=== PATIENT | female | born 1950 | race Caucasian/White ===

== ENCOUNTER → 2016-09-26 | Outpatient (CLI) | payer OTHER ==
--- NOTE | 2016-10-01 13:04 | MM ---
Reason for exam: follow-up at short interval from prior study. Last mammogram was performed 6 months ago. History: Patient is postmenopausal. Family history of breast cancer in sister at age 63. Took estrogen for 1 year beginning at age 27. Physical Findings: Nurse did not find any significant physical abnormalities on exam. MG 3D Diag Mammo W/Cad LT CC and MLO view(s) were taken of the left breast. Prior study comparison: April 03, 2016, left breast MG work up mamm w CAD LT. March 11, 2016, bilateral MG screening mammo w CAD. These results were verbally communicated with the patient and result sheet given to the patient on 09/26/16. ASSESSMENT: Benign, BI-RAD 2 RECOMMENDATION: Routine screening mammogram of both breasts in 6 months. Back on schedule.
--- NOTE | 2016-10-01 13:05 | USB ---
Reason for exam: follow-up at short interval from prior study. History: Patient is postmenopausal. Family history of breast cancer in sister at age 63. Took estrogen for 1 year beginning at age 27. US Breast LT Left breast ultrasound includes all four quadrants, the retroareolar region and axilla. Finding demonstrate a 0.5 x 0.5 x 0.4cm oval, cystic lesion at 2 o'clock and a 0.3 x 0.2 x 0.2cm oval cystic lesion at 10 o'clock. These results were verbally communicated with the patient and result sheet given to the patient on 09/26/16. ASSESSMENT: Benign, BI-RAD 2 RECOMMENDATION: Routine screening mammogram of both breasts in 6 months. Back on schedule.
== END | disposition home or self-care (01) ==
LOC: RADMAMWWP 13:40
PROVIDERS: ATTEND Family Medicine
DX: R92.8 Other abnormal and inconclusive findings on diagnostic imaging of breast (principal)
CPT/HCPCS: 76641; G0206; G0279

== ENCOUNTER → 2016-09-26 | Outpatient (CLI) | payer OTHER ==
[2016-09-26 16:39] LABS: CH 29.2; CHCM 33.8; HCT 45.3 % (34.0-46.0); HDW 3.09; MCH 28.7 pg (25.0-35.0); MCHC 33.2 g/dL (31.0-37.0); MCV 86.7 fL (80.0-100.0); Mean Platelet Volume 7.2; RBC 5.23 m/uL (3.80-5.40); RDW 13.9 % (11.5-15.5); WBC 7.3 k/uL (3.8-10.6)
[2016-09-26 16:44] LABS: Appearance,Urine Clear (Clear); Bacteria,Urine Rare /hpf; Bilirubin,Urine Negative (Negative); Glucose,Urine (UA) Negative (Negative); Ketones,Urine Negative (Negative); Leukocyte Esterase,Urine Negative (Negative); Mucus,Urine Rare /hpf; Nitrite,Urine Negative (Negative); PH, Urine 5.5 (5.0-8.0); Particle Count 2826; Protein,Urine Negative (Negative); RBC,Urine 3 /hpf (0-5); Specific Gravity,Urine 1.014 (1.001-1.035); Squamous Epithelial Cell,Urine 2 /hpf (0-4); UA Billing (MACRO vs. MICRO) MICRO; Urobilinogen,Urine <2.0 mg/dL (<2.0); WBC,Urine 3 /hpf (0-5)
[2016-09-26 16:47] LABS: INR 1.1 (<1.1); Prothrombin Time 10.7 sec (9.0-12.0)
[2016-09-26 16:56] LABS: ALT 33 U/L (9-52); AST 25 U/L (14-36); Alkaline Phosphatase 116 U/L (38-126); Anion Gap 9 mmol/L; Blood Urea Nitrogen 17 mg/dL (7-17); Calcium 9.7 mg/dL (8.4-10.2); Carbon Dioxide 26 mmol/L (22-30); Chloride 103 mmol/L (98-107); Glucose 87 mg/dL (74-99); Non-African American GFR(MDRD) >60 (>60 ml/min/1.73 sqM); Potassium 3.9 mmol/L (3.5-5.1); Sodium 138 mmol/L (137-145); Total Bilirubin 0.6 mg/dL (0.2-1.3); Total Protein 6.6 g/dL (6.3-8.2)
== END ==
LOC: LABPAT 15:29
PROVIDERS: ATTEND Family Medicine
DX: Z01.818 Encounter for other preprocedural examination (principal); Z01.810 Encounter for preprocedural cardiovascular examination; Z01.812 Encounter for preprocedural laboratory examination; M17.11 Unilateral primary osteoarthritis, right knee
CPT/HCPCS: 80053; 81001; 85027; 85610; 85730; 87070

== ENCOUNTER 2016-10-07 10:13 | Inpatient (IN) | payer OTHER ==
[~2016-10-07 10:13] MED LIST: ACETAMINOPHEN TAB 500 MG TAB PO ONE; DEXAMETHASONE SOD PHOSPHATE 10 MG/ML 1 ML VIAL IV ONE; LIDOCAINE 1% 20 ML VIAL (10MG/ML) FOR IV START INTRADERMA PRN; MELOXICAM 7.5 MG TAB PO ONE; ONDANSETRON 4 MG/2 ML VIAL IVP ONE; SCOPOLAMINE 1.5MG/72HR PATCH TRANSDERM ONE; TRANEXAMIC ACID 1,000 MG in SODIUM CHLORIDE 0.9% 100 ML IVPB ONE; ceFAZolin 3 GM in SODIUM CHLORIDE 0.9% 100 ML IVPB ONE
[2016-10-07] MEDS: LACTATED RINGERS 1,000 ML IV SCH (13:04)
[2016-10-07] MEDS ORDERED: TRANEXAMIC ACID 1,000 MG/10 ML VIAL ONE (13:57)
[2016-10-07] MEDS ORDERED: LIDOCAINE 1% INJ 10MG/ML (20 ML MDV) ONE (13:57)
[2016-10-07] MEDS ORDERED: MIDAZOLAM 2 MG/2 ML VIAL ONE (13:57)
[2016-10-07] MEDS ORDERED: ROCURONIUM BROMIDE 10 MG/ML 10 ML VIAL IV ONE (13:57)
[2016-10-07] MEDS ORDERED: fentaNYL (PF) 50 MCG/ML 2 ML AMP ONE (13:57)
[2016-10-07] MEDS ORDERED: SUCCINYLCHOLINE CHLORIDE 100 MG/5 ML SYR IV ONE (13:57)
[2016-10-07] MEDS ORDERED: MORPHINE SULFATE 10 MG/ML SYRINGE ONE (13:57)
[2016-10-07] MEDS ORDERED: PROPOFOL 10 MG/ML 20 ML VIAL IV ONE (13:57)
[2016-10-07] MEDS ORDERED: SODIUM CHLORIDE 0.9% 100 ML BAG ONE (13:57)
[2016-10-07] MEDS ORDERED: SODIUM CHLORIDE 0.9% 50 ML with CLINDAMYCIN 600 MG IV ONE ×2 (14:10)
[2016-10-07] MEDS ORDERED: CLINDAMYCIN 1,800 MG in SODIUM CHLORIDE 0.9% IRRIGATIO 3,000 ML IRRIGATION ONE (14:27)
[2016-10-07] MEDS: ROPIVACAINE 246.25 MG, EPINEPHrine 0.5 MG, KETOROLAC 30 MG, cloNIDine HCL/PF 80 MCG, WA... MISCELLANE ONE ×10 (14:27→14:59)
--- NOTE | 2016-10-07 15:42 | P.OP ---
Date of Procedure: 10/07/16 Preoperative Diagnosis: Severe osteoarthritis right knee Postoperative Diagnosis: Severe osteoarthritis right knee Procedure(s) Performed: Right total knee arthroplasty Implants: Chan and Nephew Oxinium femoral component size 5, right Chan & Nephew Lucina II right nonporous tibial baseplate size 3 Chan & Nephew size 9 mm Legion XLPE dished articular insert, size 3-4 Chan & Nephew Lucina II resurfacing patellar component, 32 mm All components were cemented using Marilia bone cement.. The articulation is ceramic on polyethylene. Anesthesia: GETA Surgeon: Luis Felipe Manzano Spring Encaser #1: Elidia Zelaya Spring Encaser #2: Essence Smith Estimated Blood Loss (ml): 50 Pathology: other (Bone and cartilage) Condition: stable Disposition: PACU Indications for Procedure: After failure of conservative treatment we discussed the surgical and nonsurgical treatment options at length. Patient wishes to proceed with a total knee arthroplasty. Complications specific to this procedure were discussed at length, including but not limited to infection, bleeding, stiffness , and nerve injury. Patient is aware of all these complications and informed consent was obtained Operative Findings: The operative findings are consistent with severe osteoarthritis of the right knee Description of Procedure: Patient was seen in the preoperative area consent was reviewed and operative site was marked with a skin marker. An adductor canal pain catheter was placed by anesthesia in the preoperative area. Patient was then brought to the operating room and given preoperative antibiotics intravenously. A spinal anesthetic was administered by the anesthesia department. A tourniquet was placed on the upper thigh and the lower extremity was prepped and draped in usual sterile fashion. A gram of transexamic acid was given. A universal timeout was then performed which confirmed the patient's name, surgical site, ALLERGIES, and consent. The lower extremity was then exsanguinated and tourniquet was inflated to 350 mmHg. A standard and anterior midline approach to the knee was performed. The skin and subcutaneous tissue was dissected down to the patellar tendon. A medial parapatellar arthrotomy was then performed. The knee was then extended, the patellar was everted, and the knee was again flexed. Anterior horns of both menisci were excised, and a release was performed to the posterior medial aspect of the knee. On gross visual inspection, there was complete loss of articular cartilage in the medial and patellofemoral joint spaces. There was also significant cartilage damage in the lateral compartment. There were multiple periarticular osteophytes which were then removed with a Ronguer. The femoral canal was then opened with the appropriate drill, and the intramedullary femoral cutting guide was then placed and set for 4 of valgus. The distal femoral cutting block was then pinned in place, and the distal femur was then cut. The cutting block was then removed and the cut was checked for flatness. Next, the sizing guide was then placed and set for 3 external rotation based off of the epicondylar axis and Whitesides line. After the femur was sized, the appropriate 4-in-1 cutting block was then pinned in place. The anterior condyles were cut without notching. The posterior and chamfer cuts were performed while protecting the collateral ligaments. The cutting block was then removed, and the femoral canal was plugged with autologous bone. Attention was then directed to the tibia. The remaining ACL was removed with a Ronguer, and the tibia was then gently subluxed forward with a large bent knee retractor. Any remaining menisci was excised. The posterior lateral corner was cauterized in order to cauterize the lateral geniculate artery. The extra medullary tibial cutting guide was then placed, set for the appropriate rotation , slope, and depth of resection. The proximal tibia cutting guide was then pinned in place. Proximal tibia was then cut and sized. Next trials were then placed with the appropriate-sized insert. The knee was able to fully extend and flex to 130 and was stable throughout all range of motion. The knee was then extended, patella everted. Patella was then measured, and then using an osteotomy guide, the patella was cut at the appropriate level. The patella was then measured and drilled and the patella trial was then placed. The knee was then taken through range of motion with the patella trial and the patella tracked normally. The knee was then extended patella trial was then removed and the patella was everted. Knee was then flexed and lug holes were drilled through the femoral trial and the femoral trial was then removed. The tibial was then exposed, and the tibial broach guide was then pinned in place after it was set for the appropriate rotation to allow for the most coverage without overhang. The tibia was then reamed and broached. The cut surfaces of bone were then irrigated with pulsatile lavage. The posterior structures were injected with the ropivacaine solution. The knee was also irrigated with Irrisept solution. The components were then opened, the cement was mixed, and the components were then cemented in place. The cement was allowed to harden with the knee in full extension. While the cement was hardening, the remaining soft tissues were then injected with a ropivacaine solution, which consisted of 246.25 mg of ropivacaine, 0.5 mg of epinephrine, 30 mg of Toradol, 80 g of clonidine, and 48.45 mL of sterile water, for a total of 100 mL of fluid injected. After the cemented hardened. The tourniquet was released, and hemostasis was obtained. A second gram of transexamic acid was given. The knee was again irrigated. The knee was again taken through range of motion and found to be stable throughout all range of motion of 0-130 , and the patella tracked normally. The fascia was then closed with #2 strata fix suture. The subcutaneous tissue was closed with 3-0 Vicryl and 3-0 strata fix. Dermabond tape was used for the skin and placed with the knee in flexion. The patient was placed in a sterile dressing. Patient was then transferred to recovery room in stable condition. The customer assistant KAJAL Moeller was required due the complexity surgery and the need for a skilled surgical nurse practitioner. She assisted in positioning, draping , retraction, and closure of the wound.
[2016-10-07] MEDS ORDERED: NA PHOS,M-B/NA PHOS,DI-BA 133 ML ENEMA RECTAL PRN (15:53)
[2016-10-07] MEDS ORDERED: ONDANSETRON 4 MG/2 ML VIAL IVP PRN (15:53)
[2016-10-07] MEDS ORDERED: MAGNESIUM HYDROXIDE 2,400 MG/10 ML CUP PO PRN (15:53)
[2016-10-07] MEDS ORDERED: NALOXONE 0.4 MG/ML 1 ML VIAL IV PRN ×2 (15:53→15:58)
[2016-10-07] MEDS ORDERED: DIAZEPAM 5 MG TAB PO PRN ×2 (15:53)
[2016-10-07] MEDS ORDERED: HYDROcodone/APAP 7.5-325MG 1 EACH TAB PO PRN (15:53)
[2016-10-07] MEDS ORDERED: BISACODYL 10 MG SUPP RECTAL PRN (15:53)
[2016-10-07] MEDS: MORPHINE SULFATE 10 MG/ML SYRINGE IVP ONE ×3 (16:00→16:12)
[2016-10-07] MEDS ORDERED: KETOROLAC 30 MG/ML 1 ML VIAL IVP ONE (16:05)
--- NOTE | 2016-10-07 16:22 | XR ---
EXAMINATION TYPE: XR knee limited RT DATE OF EXAM ORDERED: 10/07/2016 HISTORY: Status post right knee arthroplasty. COMPARISON: Preoperative study dated 06/18/2015. FINDINGS: A right knee arthroplasty has been performed. Prosthetic elements appear in good position. There is subcutaneous and intra-articular air. IMPRESSION: STATUS POST RIGHT ARTHROPLASTY.
[2016-10-07] MEDS: fentaNYL (PF) 50 MCG/ML 2 ML AMP IV PRN ×2 (16:26→16:33)
[2016-10-07] MEDS: MEPERIDINE 50 MG/ML SYRINGE IVP ONE ×2 (16:43→16:55)
[2016-10-07] MEDS: MORPHINE PCA 30 MG/30 ML SYRINGE IV PRN (17:33)
[2016-10-07] MEDS: SODIUM CHLORIDE 0.9% 1,000 ML IV SCH (18:04)
[2016-10-07] MEDS ORDERED: SODIUM CHLORIDE 0.9% 500 ML IV ONE (18:24)
--- NOTE | 2016-10-07 18:44 | P.CONS ---
History of Present Illness - Reason for Consult Consult date: 10/07/16 Medical management Requesting physician: Luis Felipe Manzano - Chief Complaint Post right total knee arthroplasty. - History of Present Illness This is a 65-year-old female one of Dr. Bennett with a previous medical history significant for hypertension and hypertensive cardiovascular disease with left ventricular hypertrophy, history of paroxysmal atrial fibrillation, obesity with obstructive sleep apnea , history of osteoarthritis, failed conservative management of severe osteopenia arthritis of the right knee ended up going for right total nothing pussy that was done successfully by Dr. Manzano and I was asked to see the patient for medical management. Patient is laying down in bed does appear to be in minimal distress because of increased pain in her right knee, she is in atrial fibrillation and the monitor showing heart rate between 105 and 1 30 bpm, she did receive her Cartia, she would have a bolus of normal saline at 500 mL over 1 hour, if she is not better will need to the patient up to the selective care to give her IV Lopressor 5 mg IV push every 6 hours as needed. Review of Systems Constitutional: Reports weight gain, Denies anorexia, Denies chronic headaches, Denies lethargy, Denies weakness, Denies weight loss Eyes: denies blurred vision, denies bulging eye, denies decreased vision Ears, nose, mouth and throat: Denies dysphagia, Denies neck lump, Denies sore throat Cardiovascular: Reports high blood pressure, Denies chest pain, Denies dyspnea on exertion, Denies phlebitis, Denies rapid heart beat, Denies shortness of breath, Denies syncope Respiratory: Reports sleep apnea, Denies congestion, Denies cough, Denies cough with sputum, Denies home oxygen, Denies snoring, Denies wheezing Gastrointestinal: Reports nausea, Denies abdominal pain, Denies belching, Denies BRBPR, Denies heartburn, Denies hematemesis, Denies melena, Denies vomiting Genitourinary: Denies dysuria, Denies hematuria Musculoskeletal: Reports as per HPI Musculoskeletal: right: knee pain, knee stiffness, knee swelling, absent: ankle pain, ankle stiffness, ankle swelling, as per HPI, elbow pain, elbow stiffness, elbow swelling, foot pain, foot stiffness, foot swelling, hand pain, hand stiffness, hand swelling, hip pain, hip stiffness, hip swelling, shoulder pain, shoulder stiffness, shoulder swelling, wrist pain, wrist stiffness, wrist swelling Integumentary: Denies pruritus, Denies rash Neurological: Denies numbness, Denies weakness Psychiatric: Denies anxiety, Denies depression Endocrine: Denies fatigue, Denies weight change Past Medical History Past Medical History: Atrial Fibrillation, Hyperlipidemia, Hypertension, Osteoarthritis (OA), Sleep Apnea/CPAP/BIPAP Additional Past Medical History / Comment(s): CPAP. SEASONAL ALLELRGIES History of Any Multi-Drug Resistant Organisms: C-DIFF Year Discovered:: 07/23/2015 MDRO Source:: SERUM Past Surgical History: Adenoidectomy, Appendectomy, Section, Cholecystectomy, Hernia Repair, Orthopedic Surgery (Right total knee arthroplasty.), Tonsillectomy Additional Past Surgical History / Comment(s): CS X 2. HERNIA X 3. Past Anesthesia/Blood Transfusion Reactions: Motion Sickness Past Psychological History: No Psychological Hx Reported Smoking Status: Former smoker Past Alcohol Use History: None Reported Additional Past Alcohol Use History / Comment(s): STARTED @ 14YR, 1.5PPD, QUITE IN 1979. Past Drug Use History: None Reported - Past Family History Father History Unknown: Yes Family Medical History: Liver Disease Mother Family Medical History: Cancer Brother(s) Family Medical History: No Reported History Sister(s) Family Medical History: Cancer Son(s) Family Medical History: No Reported History Medications and Allergies Home Medications Medication Instructions Recorded Confirmed Type HYDROcodone/APAP 5-325MG [Bridger 1 tab PO TID PRN 09/27/15 10/07/16 History 5-325] Aspirin 325 mg PO DAILY 09/27/16 10/07/16 History Diltiazem HCl [Cartia Xt] 180 mg PO QAM 09/27/16 10/07/16 History Allergies Allergy/AdvReac Type Severity Reaction Status Date / Time hydromorphone HCl Allergy Nausea & Verified 10/07/16 12:40 [From Dilaudid] Vomiting Iodinated Contrast Media - Allergy Anaphylaxis Verified 10/07/16 12:40 Oral and [Iodinated Contrast Media - IV Dye] Penicillins Allergy Unknown Verified 10/07/16 12:40 Childhood vancomycin Allergy Rash/Hives Verified 10/07/16 12:40 meloxicam [From Mobic] AdvReac Intermediate Unknown Verified 10/07/16 13:08 Physical Exam Vitals: Vital Signs Temp Pulse Resp BP Pulse Ox 10/07/16 17:01 109 H 14 119/59 95 10/07/16 16:45 109 H 14 119/59 93 L 10/07/16 16:31 117 H 16 135/60 95 10/07/16 16:15 108 H 16 142/58 96 10/07/16 15:51 97.1 F L 94 18 134/65 94 L 10/07/16 12:36 98.3 F 71 18 169/83 96 Intake and Output 10/07/16 10/07/16 10/07/16 06:59 14:59 22:59 Intake Total 3966 150 Output Total 50 Balance 3966 100 Intake: IV 3966 150 Output: Estimated Blood Loss 50 - Constitutional General appearance: no acute distress, obese - EENT Eyes: anicteric sclerae, EOMI, PERRLA, no ptosis, no scleral icterus, normal appearance ENT: hearing grossly normal, normal oropharynx, no thrush Ears: bilateral: normal - Neck Neck: no lymphadenopathy, normal ROM, no stridor, no thyromegaly Carotids: bilateral: upstroke normal Thyroid: bilateral: normal size - Respiratory Respiratory: bilateral: diminished, negative: dullness, rales, rhonchi, wheezing , prolonged expiration - Cardiovascular Rhythm: irregularly irregular Heart sounds: normal: S1, S2 Abnormal Heart Sounds: no systolic murmur, no click - Gastrointestinal General gastrointestinal: normal bowel sounds, soft, no splenomegaly, no tenderness, no umbilical hernia, no ventral hernia - Integumentary Integumentary: normal, normal turgor - Neurologic Neurologic: CNII-XII intact - Musculoskeletal Musculoskeletal: strength equal bilaterally - Psychiatric Psychiatric: A&O x's 3, appropriate affect, intact judgment & insight Assessment and Plan Plan: Assessment and plan: 1. Post operative day #0 status post right total knee arthroplasty. Continue Incentive spirometer to reduce the incidence of atelectasis and hospital- acquired pneumonia, continue current pain management as outlined by orthopedic surgery, continue patient on DVT prophylaxis per protocol, continue patient on antibiotic prophylaxis as well. Physical therapy evaluation in the next 24 hours. 2. Hypertension and hypertensive cardio vascular disease. Continue CartiaXT 180 mg orally once every day. 3. Paroxysmal atrial fibrillation currently in A. fib with somewhat rapid ventricular response. Continue Cartia XT 180 mg orally once every day, given a bolus of normal saline 500 mL over 1 hour, if no response patient will need to go on Lopressor 2.5 mg IV push every 6 hours hold for systolic pressure less than 110 or heart rate less than or equal to 55 4. Obesity with obstructive sleep apnea. Continue CPAP. 5. Osteoarthritis. Continue current pain management. 6. History of C. diff colitis. Resolved. 7. DVT prophylaxis. Continue aspirin 325 mg orally twice every day. 9. GI prophylaxis. Continue PPI. 10. Thank you Dr. Manzano for allowing me to participate in the care of your patient we will follow the
[2016-10-07] MEDS: ASPIRIN 325 MG TAB PO SCH (20:36)
[2016-10-07] MEDS: SENNOSIDES-DOCUSATE SODIUM 1 EACH TAB PO SCH (20:36)
[2016-10-08] MEDS: SODIUM CHLORIDE 0.9% 1,000 ML IV SCH (01:08)
[2016-10-08] MEDS: CLINDAMYCIN 900 MG in DEXTROSE 5% IN WATER 50 ML IVPB SCH ×4 (01:08→08:26)
[2016-10-08 01:33] VITALS: RESP 16
[2016-10-08] MEDS: MORPHINE PCA 30 MG/30 ML SYRINGE IV PRN (04:29)
[2016-10-08 07:19] LABS: Basophils % (A) 0 %; CH 29.1; CHCM 33.3; Eosinophils % (A) 0 %; HCT 39.8 % (34.0-46.0); HDW 3.08; Luc # (Auto) 0.14; Luc % (Auto) 1; Lymphocytes # (A) 1.1 k/uL (1.0-4.8); Lymphocytes % (A) 6 %; MCH 28.7 pg (25.0-35.0); MCHC 32.7 g/dL (31.0-37.0); MCV 87.7 fL (80.0-100.0); Mean Platelet Volume 7.6; Monocytes # (A) 0.6 k/uL (0-1.0); Monocytes % (A) 3 %; Neutrophils # (A) 16.1 k/uL (1.3-7.7); Neutrophils % (A) 90 %; RBC 4.53 m/uL (3.80-5.40); RDW 14.1 % (11.5-15.5); WBC 17.9 k/uL (3.8-10.6); WBC (Perox) 18.99
[2016-10-08] MEDS: DILTIAZEM CD 180 MG CAP.ER.24H PO SCH (08:26)
[2016-10-08] MEDS: ASPIRIN 325 MG TAB PO SCH ×2 (08:26→20:58)
[2016-10-08] MEDS: LACTATED RINGERS 1,000 ML IV SCH (08:30)
[2016-10-08] MEDS ORDERED: MELOXICAM 7.5 MG TAB PO SCH (09:00)
[2016-10-08 11:44] LABS: Glucose,Whole Blood 122 mg/dL (75-99)
--- NOTE | 2016-10-08 13:17 | P.PN ---
Subjective This is a 65-year-old female one of Dr. Bennett with a previous medical history significant for hypertension and hypertensive cardiovascular disease with left ventricular hypertrophy, history of paroxysmal atrial fibrillation, obesity with obstructive sleep apnea , history of osteoarthritis, failed conservative management of severe osteopenia arthritis of the right knee ended up going for right total nothing pussy that was done successfully by Dr. Manzano and I was asked to see the patient for medical management. Patient is laying down in bed does appear to be in minimal distress because of increased pain in her right knee, she is in atrial fibrillation and the monitor showing heart rate between 105 and 1 30 bpm, she did receive her Cartia, she would have a bolus of normal saline at 500 mL over 1 hour, if she is not better will need to the patient up to the selective care to give her IV Lopressor 5 mg IV push every 6 hours as needed. 10/08: patient is feeling a lot better today she denies any chest pain or shortness breath she is converted to sinus rhythm at this time there is no abdominal pain she didn't have any bowel movement that she has not passed any gas Objective - Vital Signs Vital signs: Vital Signs Temp 97.8 F 10/08/16 07:00 Pulse 73 10/08/16 07:00 Resp 16 10/08/16 07:00 BP 135/70 10/08/16 07:00 Pulse Ox 96 10/08/16 07:00 Intake & Output 10/07/16 10/08/16 10/08/16 18:59 06:59 18:59 Intake Total 4116 900 Output Total 200 Balance 3916 900 Intake: IV 4116 Intake, IV Titration 900 Amount Sodium Chloride 0.9% 1, 900 000 ml @ 75 mls/hr IV . [id number] [facility] Rx#:[id number] Output: Urine 150 Estimated Blood Loss 50 Other: # Voids 1 - Exam - Constitutional General appearance: no acute distress, obese - EENT Eyes: anicteric sclerae, EOMI, PERRLA, no ptosis, no scleral icterus, normal appearance ENT: hearing grossly normal, normal oropharynx, no thrush Ears: bilateral: normal - Neck Neck: no lymphadenopathy, normal ROM, no stridor, no thyromegaly Carotids: bilateral: upstroke normal Thyroid: bilateral: normal size - Respiratory Respiratory: bilateral: diminished, negative: dullness, rales, rhonchi, wheezing , prolonged expiration - Cardiovascular Rhythm: irregularly irregular Heart sounds: normal: S1, S2 Abnormal Heart Sounds: no systolic murmur, no click - Gastrointestinal General gastrointestinal: normal bowel sounds, soft, no splenomegaly, no tenderness, no umbilical hernia, no ventral hernia - Integumentary Integumentary: normal, normal turgor - Neurologic Neurologic: CNII-XII intact - Musculoskeletal Musculoskeletal: strength equal bilaterally - Psychiatric Psychiatric: A&O x's 3, appropriate affect, intact judgment & insight - Labs CBC & Chem 7: 10/08/16 06:52 Labs: Abnormal Lab Results - Last 24 Hours (Table) 10/08/16 10/08/16 Range/Units 06:52 11:40 WBC 17.9 H (3.8-10.6) k/uL Neutrophils # 16.1 H (1.3-7.7) k/uL POC Glucose (mg/dL) 122 H (75-99) mg/dL Assessment and Plan Plan: Assessment and Plan Plan: Assessment and plan: 1. Post operative day #0 status post right total knee arthroplasty. Continue Incentive spirometer to reduce the incidence of atelectasis and hospital- acquired pneumonia, continue current pain management as outlined by orthopedic surgery, continue patient on DVT prophylaxis per protocol, continue patient on antibiotic prophylaxis as well. Physical therapy evaluation in the next 24 hours. 2. Hypertension and hypertensive cardio vascular disease. Continue CartiaXT 180 mg orally once every day. 3. Paroxysmal atrial fibrillation currently in A. fib with somewhat rapid ventricular response. Continue Cartia XT 180 mg orally once every day, given a bolus of normal saline 500 mL over 1 hour, if no response patient will need to go on Lopressor 2.5 mg IV push every 6 hours hold for systolic pressure less than 110 or heart rate less than or equal to 55 4. Obesity with obstructive sleep apnea. Continue CPAP. 5. Osteoarthritis. Continue current pain management. 6. History of C. diff colitis. Resolved. 7. DVT prophylaxis. Continue aspirin 325 mg orally twice every day. 9. GI prophylaxis. Continue PPI. 10. constipation. We'll start the patient on Senokot-S 2 tablets orally once every day as well as MiraLAX 17 g in 8 ounce water once every day.
--- NOTE | 2016-10-08 14:38 | P.PN ---
Subjective Principal diagnosis: Status post total knee arthroplasty. This is a 65-year-old female who is status post total knee arthroplasty. This is postoperative day #1. Patient was seen and evaluated at bedside with Dr. Luis Felipe Manzano. Patient's pain is under control. Patient has no complaints today and is doing well. Objective - Vital Signs Vital signs: Vital Signs Temp 97.8 F 10/08/16 07:00 Pulse 73 10/08/16 07:00 Resp 16 10/08/16 07:00 BP 135/70 10/08/16 07:00 Pulse Ox 96 10/08/16 07:00 Intake & Output 10/07/16 10/08/16 10/08/16 18:59 06:59 18:59 Intake Total 4116 900 Output Total 200 Balance 3916 900 Intake: IV 4116 Intake, IV Titration 900 Amount Sodium Chloride 0.9% 1, 900 000 ml @ 75 mls/hr IV . [id number] [facility] Rx#:[id number] Output: Urine 150 Estimated Blood Loss 50 Other: # Voids 1 - Exam Vital signs are stable. Patient is in no acute distress and is alert and oriented 3. Calf is soft and nontender. Incision is clean, dry, and intact. Neurovascular status intact. Patient has full foot and ankle motion. - Labs CBC & Chem 7: 10/08/16 06:52 Labs: Abnormal Lab Results - Last 24 Hours (Table) 10/08/16 10/08/16 Range/Units 06:52 11:40 WBC 17.9 H (3.8-10.6) k/uL Neutrophils # 16.1 H (1.3-7.7) k/uL POC Glucose (mg/dL) 122 H (75-99) mg/dL Assessment and Plan (1) Primary osteoarthritis of knee Status: Acute (2) History of total knee arthroplasty Status: Acute Plan: #1 Continue with routine postoperative care. #2 Discontinue [employer] #3 [place] and Tramadol for pain. #4 Anticoagulation with aspirin. #5 Physical therapy and CPM today. #6 Appreciated input from medicine. #7 Anticipate discharge to rehab on .
[2016-10-08] MEDS: POLYETHYLENE GLYCOL 3350 17 GM POWD.PACK PO SCH (14:47)
--- NOTE | 2016-10-08 15:15 | XR ---
EXAMINATION TYPE: XR chest 1V portable DATE OF EXAM: 10/08/2016 CLINICAL HISTORY: Extended-care facility placement. TECHNIQUE: Single AP portable upright view of the chest is obtained. COMPARISON: Chest x-ray from February 23, 2016. FINDINGS: Diminished inspiration is seen on current study. There is patchy left basilar atelectasis and/or infiltrate. Right lung is clear. No large pleural effusion or pneumothorax is seen. Cardiac si lhouette size is upper limits of normal. Osseous structures are intact. IMPRESSION: Diminished inspiration with patchy left basilar atelectasis and/or infiltrate. Consider p fina two-view chest x-ray.
[2016-10-08] MEDS: HYDROcodone/APAP 7.5-325MG 1 EACH TAB PO PRN ×2 (15:19→20:59)
[2016-10-08] MEDS: KETOROLAC 30 MG/ML 1 ML VIAL IVP PRN ×2 (15:19→23:18)
[2016-10-08] MEDS: hydrOXYzine PAMOATE 25 MG CAP PO PRN (20:59)
[2016-10-08] MEDS: SENNOSIDES-DOCUSATE SODIUM 1 EACH TAB PO SCH (20:59)
[2016-10-09] MEDS: HYDROcodone/APAP 7.5-325MG 1 EACH TAB PO PRN ×3 (06:25→23:15)
[2016-10-09] MEDS: ASPIRIN 325 MG TAB PO SCH ×2 (08:06→21:27)
[2016-10-09] MEDS: POLYETHYLENE GLYCOL 3350 17 GM POWD.PACK PO SCH (08:07)
[2016-10-09] MEDS: DILTIAZEM CD 180 MG CAP.ER.24H PO SCH (08:30)
[2016-10-09 09:07] LABS: ALT 30 U/L (9-52); AST 25 U/L (14-36); Alkaline Phosphatase 88 U/L (38-126); Anion Gap 8 mmol/L; Blood Urea Nitrogen 24 mg/dL (7-17); Calcium 9.6 mg/dL (8.4-10.2); Carbon Dioxide 25 mmol/L (22-30); Chloride 96 mmol/L (98-107); Glucose 98 mg/dL (74-99); Non-African American GFR(MDRD) 53 (>60 ml/min/1.73 sqM); Potassium 4.2 mmol/L (3.5-5.1); Sodium 129 mmol/L (137-145); Total Bilirubin 0.7 mg/dL (0.2-1.3); Total Protein 5.9 g/dL (6.3-8.2)
--- NOTE | 2016-10-09 09:10 | P.PN ---
Subjective Principal diagnosis: Status post total knee arthroplasty. This is a 65-year-old female who is status post total knee arthroplasty. This is postoperative day #2. Patient was seen and evaluated at bedside with Dr. Luis Felipe Manzano. Patient's pain has been under control. Patient has been up and walking. Patient states she has been passing gas but has not had a bowel movement yet. This is causing her some mild abdominal discomfort. Patient denies any nausea/vomiting or diarrhea. Otherwise patient has no new complaints. Objective - Vital Signs Vital signs: Vital Signs Temp 97.7 F 10/09/16 07:00 Pulse 81 10/09/16 07:00 Resp 16 10/09/16 07:00 BP 142/81 10/09/16 07:00 Pulse Ox 98 10/09/16 07:00 Intake & Output 10/08/16 10/09/16 10/09/16 18:59 06:59 18:59 Intake Total 525 240 Output Total 200 Balance 525 -200 240 Intake: Intake, IV Titration 525 Amount Sodium Chloride 0.9% 1, 525 000 ml @ 75 mls/hr IV . [id number] [facility] Rx#:[id number] Oral 240 Output: Urine 200 Other: Voiding Method Toilet # Voids 2 1 1 - Exam Vital signs are stable. Patient is in no acute distress and is alert and oriented 3. Calf is soft and nontender. Incision with dressing intact showing no drainage. Neurovascular status intact. Patient has full foot and ankle motion. Abdomen is soft, nondistended and nontender. No rebound or guarding present. - Labs CBC & Chem 7: 10/08/16 06:52 Labs: Abnormal Lab Results - Last 24 Hours (Table) 10/08/16 Range/Units 11:40 POC Glucose (mg/dL) 122 H (75-99) mg/dL Assessment and Plan (1) Primary osteoarthritis of knee Status: Acute (2) History of total knee arthroplasty Status: Acute Plan: #1 Continue with routine postoperative care. #2 Anticoagulation with aspirin. #3 Physical therapy and CPM today. #4 Appreciate input from medicine. #5 Anticipate discharge to rehab on if patient is able to have a bowel movement.
[2016-10-09] MEDS: KETOROLAC 30 MG/ML 1 ML VIAL IVP PRN (10:19)
[2016-10-09] MEDS: hydrOXYzine PAMOATE 25 MG CAP PO PRN (12:58)
--- NOTE | 2016-10-09 14:33 | P.PN ---
Subjective This is a 65-year-old female one of Dr. Bennett with a previous medical history significant for hypertension and hypertensive cardiovascular disease with left ventricular hypertrophy, history of paroxysmal atrial fibrillation, obesity with obstructive sleep apnea , history of osteoarthritis, failed conservative management of severe osteopenia arthritis of the right knee ended up going for right total nothing pussy that was done successfully by Dr. Manzano and I was asked to see the patient for medical management. Patient is laying down in bed does appear to be in minimal distress because of increased pain in her right knee, she is in atrial fibrillation and the monitor showing heart rate between 105 and 1 30 bpm, she did receive her Cartia, she would have a bolus of normal saline at 500 mL over 1 hour, if she is not better will need to the patient up to the selective care to give her IV Lopressor 5 mg IV push every 6 hours as needed. 10/08: patient is feeling a lot better today she denies any chest pain or shortness breath she is converted to sinus rhythm at this time there is no abdominal pain she didn't have any bowel movement that she has not passed any gas Objective - Vital Signs Vital signs: Vital Signs Temp 98.3 F 10/09/16 13:56 Pulse 65 10/09/16 13:56 Resp 16 10/09/16 13:56 BP 131/77 10/09/16 13:56 Pulse Ox 98 10/09/16 13:56 Intake & Output 10/08/16 10/09/16 10/09/16 18:59 06:59 18:59 Intake Total 525 900 Output Total 200 Balance 525 -200 900 Intake: Intake, IV Titration 525 Amount Sodium Chloride 0.9% 1, 525 000 ml @ 75 mls/hr IV . [id number] [facility] Rx#:[id number] Oral 900 Output: Urine 200 Other: Voiding Method Toilet # Voids 2 1 2 - Exam General appearance: no acute distress, obese - EENT Eyes: anicteric sclerae, EOMI, PERRLA, no ptosis, no scleral icterus, normal appearance ENT: hearing grossly normal, normal oropharynx, no thrush Ears: bilateral: normal - Neck Neck: no lymphadenopathy, normal ROM, no stridor, no thyromegaly Carotids: bilateral: upstroke normal Thyroid: bilateral: normal size - Respiratory Respiratory: bilateral: diminished, negative: dullness, rales, rhonchi, wheezing , prolonged expiration - Cardiovascular Rhythm: irregularly irregular Heart sounds: normal: S1, S2 Abnormal Heart Sounds: no systolic murmur, no click - Gastrointestinal General gastrointestinal: normal bowel sounds, soft, no splenomegaly, no tenderness, no umbilical hernia, no ventral hernia - Integumentary Integumentary: normal, normal turgor - Neurologic Neurologic: CNII-XII intact - Musculoskeletal Musculoskeletal: strength equal bilaterally - Psychiatric Psychiatric: A&O x's 3, appropriate affect, intact judgment & insight - Labs CBC & Chem 7: 10/08/16 06:52 10/09/16 08:30 Labs: Abnormal Lab Results - Last 24 Hours (Table) 10/09/16 Range/Units 08:30 Sodium 129 L (137-145) mmol/L Chloride 96 L (98-107) mmol/L BUN 24 H (7-17) mg/dL Total Protein 5.9 L (6.3-8.2) g/dL Albumin 3.4 L (3.5-5.0) g/dL Assessment and Plan Plan: 1. Post operative day #0 status post right total knee arthroplasty. Continue Incentive spirometer to reduce the incidence of atelectasis and hospital- acquired pneumonia, continue current pain management as outlined by orthopedic surgery, continue patient on DVT prophylaxis per protocol, continue patient on antibiotic prophylaxis as well. Physical therapy evaluation in the next 24 hours. 2. Hypertension and hypertensive cardio vascular disease. Continue CartiaXT 180 mg orally once every day. 3. Paroxysmal atrial fibrillation currently in A. fib with somewhat rapid ventricular response. Continue Cartia XT 180 mg orally once every day, given a bolus of normal saline 500 mL over 1 hour, if no response patient will need to go on Lopressor 2.5 mg IV push every 6 hours hold for systolic pressure less than 110 or heart rate less than or equal to 55 4. Obesity with obstructive sleep apnea. Continue CPAP. 5. Osteoarthritis. Continue current pain management. 6. History of C. diff colitis. Resolved. 7. DVT prophylaxis. Continue aspirin 325 mg orally twice every day. 9. GI prophylaxis. Continue PPI. 10. constipation. We'll start the patient on Senokot-S 2 tablets orally once every day as well as MiraLAX 17 g in 8 ounce water once every day. Discharge plan: [place] tomorrow Impression and plan of care have been directed as dictated by the signing physician. Leticia Warren nurse practitioner acting as scribe for signing physician.
[2016-10-09] MEDS: SENNOSIDES-DOCUSATE SODIUM 1 EACH TAB PO SCH (21:28)
[2016-10-10 07:31] LABS: Basophils % (A) 1 %; CH 29.3; CHCM 33.9; Eosinophils # (A) 0.1 k/uL (0-0.7); Eosinophils % (A) 1 %; HCT 35.8 % (34.0-46.0); HDW 2.87; HGB 11.8 gm/dL (11.4-16.0); Luc # (Auto) 0.19; Luc % (Auto) 3; Lymphocytes # (A) 1.8 k/uL (1.0-4.8); Lymphocytes % (A) 27 %; MCH 28.5 pg (25.0-35.0); MCHC 32.9 g/dL (31.0-37.0); MCV 86.9 fL (80.0-100.0); Mean Platelet Volume 7.4; Monocytes # (A) 0.4 k/uL (0-1.0); Monocytes % (A) 6 %; Neutrophils # (A) 4.3 k/uL (1.3-7.7); Neutrophils % (A) 63 %; RBC 4.12 m/uL (3.80-5.40); RDW 14.3 % (11.5-15.5); WBC 6.8 k/uL (3.8-10.6); WBC (Perox) 7.35
[2016-10-10 07:41] LABS: ALT 30 U/L (9-52); AST 21 U/L (14-36); Alkaline Phosphatase 88 U/L (38-126); Anion Gap 5 mmol/L; Blood Urea Nitrogen 17 mg/dL (7-17); Calcium 9.4 mg/dL (8.4-10.2); Carbon Dioxide 27 mmol/L (22-30); Chloride 108 mmol/L (98-107); Glucose 91 mg/dL (74-99); Non-African American GFR(MDRD) >60 (>60 ml/min/1.73 sqM); Potassium 4.7 mmol/L (3.5-5.1); Sodium 140 mmol/L (137-145); Total Bilirubin 0.7 mg/dL (0.2-1.3); Total Protein 5.5 g/dL (6.3-8.2)
[2016-10-10] MEDS: POLYETHYLENE GLYCOL 3350 17 GM POWD.PACK PO SCH (08:24)
[2016-10-10] MEDS: DILTIAZEM CD 180 MG CAP.ER.24H PO SCH (08:25)
[2016-10-10] MEDS: ASPIRIN 325 MG TAB PO SCH (08:25)
[2016-10-10] MEDS: HYDROcodone/APAP 7.5-325MG 1 EACH TAB PO PRN ×2 (08:30→13:34)
--- NOTE | 2016-10-10 09:03 | P.PN ---
Subjective Principal diagnosis: Status post total knee arthroplasty. This is a 65-year-old female who is status post total knee arthroplasty. This is postoperative day #3. Patient's pain has been under control. Patient has been out of bed with assistance. Patient states she has been passing gas but has still not had a bowel movement. Patient denies any fevers, nausea/vomiting or diarrhea. Otherwise patient has no new complaints. Objective - Vital Signs Vital signs: Vital Signs Temp 98.0 F 10/10/16 07:00 Pulse 65 10/10/16 07:00 Resp 16 10/10/16 07:00 BP 138/63 10/10/16 07:00 Pulse Ox 95 10/10/16 07:00 Intake & Output 10/09/16 10/10/16 10/10/16 18:59 06:59 18:59 Intake Total 900 Output Total 0 Balance 900 0 Intake: Oral 900 Output: Stool 0 Other: Voiding Method Bedside Commode Bedside Commode # Voids 2 - Exam Vital signs are stable. Patient is in no acute distress and is alert and oriented 3. Calf is soft and nontender. Incision is clean, dry, and intact with no drainage. Neurovascular status intact. Patient has full foot and ankle motion. Abdomen is soft. - Labs CBC & Chem 7: 10/10/16 06:52 10/10/16 06:52 Labs: Abnormal Lab Results - Last 24 Hours (Table) 10/09/16 10/09/16 10/09/16 Range/Units 08:30 08:30 12:53 Sodium 129 L (137-145) mmol/L Chloride 96 L (98-107) mmol/L BUN 24 H (7-17) mg/dL Osmolality 269 L (280-301) mosm/kg Total Protein 5.9 L (6.3-8.2) g/dL Albumin 3.4 L (3.5-5.0) g/dL Ur Random Sodium <5 L (30-90) mmol/L 10/10/16 Range/Units 06:52 Sodium (137-145) mmol/L Chloride 108 H (98-107) mmol/L BUN (7-17) mg/dL Osmolality (280-301) mosm/kg Total Protein 5.5 L (6.3-8.2) g/dL Albumin 3.0 L (3.5-5.0) g/dL Ur Random Sodium (30-90) mmol/L Assessment and Plan (1) Primary osteoarthritis of knee Status: Acute (2) History of total knee arthroplasty Status: Acute Plan: #1 Continue with routine postoperative care. #2 Anticoagulation with aspirin. #3 Physical therapy and CPM today. #4 Appreciate input from medicine. #5 Anticipate discharge to rehab if patient is able to have a bowel movement.
--- NOTE | 2016-10-10 09:09 | P.DS ---
Providers Date of admission: 10/07/16 11:59 Expected date of discharge: 10/10/16 Attending physician: Luis Felipe Manzano Consults: 10/07/16 15:53 Consult Physician Routine Consulting Provider: Maren Mccrary Consult Reason/Comments: medical management Do you want consulting provider notified?: Yes Primary care physician: Yong Mcallister Kut - Discharge Diagnosis(es) (1) Primary osteoarthritis of knee Current Visit: Yes Status: Acute (2) History of total knee arthroplasty Current Visit: Yes Status: Acute Hospital Course: This is a 65-year-old female with known history of degenerative arthritis of the right knee. The patient presents for evaluation. After discussion and consideration patient elects to proceed with total knee arthroplasty. The patient is seen preoperatively by Dr. Manzano and cleared for surgery. Patient is admitted to [facility] on 10/07/2016 for total knee arthroplasty. The procedures performed without complication or sequelae. The patient is doing well postoperatively. Labs and vital signs are stable on day of discharge. On day of discharge patient's knee incision is healing well. There is minimal erythema. There is no drainage noted at this time. There is minimal soft tissue swelling to the knee. Patient has full foot and ankle motion without difficulty or pain. Neurovascular status to the right lower extremity is intact. Patient is discharged to rehab in good condition. Please see med rec for accurate list of home medications. Plan - Discharge Summary New Discharge Prescriptions: New Aspirin 325 mg PO BID #60 tab HYDROcodone/APAP 7.5-325MG [[place] 7.5-325] 1 - 2 tab PO Q4-6H PRN #60 tab PRN Reason: Pain Sennosides-Docusate Sodium [Senokot-S] 1 tab PO BID #60 tablet No Action HYDROcodone/APAP 5-325MG [[place] 5-325] 1 tab PO TID PRN PRN Reason: Pain Diltiazem HCl [Cartia Xt] 180 mg PO QAM Aspirin 325 mg PO DAILY Discharge Medication List HYDROcodone/APAP 5-325MG [[place] 5-325] 1 tab PO TID PRN 09/27/15 [History] Aspirin 325 mg PO DAILY 09/27/16 [History] Diltiazem HCl [Cartia Xt] 180 mg PO QAM 09/27/16 [History] Aspirin 325 mg PO BID #60 tab 10/10/16 [Rx] HYDROcodone/APAP 7.5-325MG [[place] 7.5-325] 1 - 2 tab PO Q4-6H PRN #60 tab [Rx] Sennosides-Docusate Sodium [Senokot-S] 1 tab PO BID #60 tablet 10/10/16 [Rx] Follow up Appointment(s)/Referral(s): Luis Felipe Manzano DO [Doctor of Osteopathic Medicine] - 2 Weeks Ambulatory/Diagnostic Orders: Continuous Passive Motion (CPM) Machine [DME.AMB1] Time Frame: 2 Weeks, Location : Determined By Patient Activity/Diet/Wound Care/Special Instructions: Weightbearing as tolerated with a walker CPM 5-6h daily Daily dressing changes, keep incision clean and dry May shower if no drainage from incision [facility] with questions or concerns [phone] Discharge Disposition: TRANSFER TO SNF/ECF
[2016-10-10] MEDS ORDERED: LACTULOSE 20 GM/30 ML CUP PO SCH (13:30)
[2016-10-10 15:14] VITALS: BP 157/74; PULSE 60; TEMP 97.6
--- NOTE | 2016-10-10 15:39 | P.PN ---
Subjective This is a 65-year-old female one of Dr. Bennett with a previous medical history significant for hypertension and hypertensive cardiovascular disease with left ventricular hypertrophy, history of paroxysmal atrial fibrillation, obesity with obstructive sleep apnea , history of osteoarthritis, failed conservative management of severe osteopenia arthritis of the right knee ended up going for right total nothing pussy that was done successfully by Dr. Manzano and I was asked to see the patient for medical management. Patient is laying down in bed does appear to be in minimal distress because of increased pain in her right knee, she is in atrial fibrillation and the monitor showing heart rate between 105 and 1 30 bpm, she did receive her Cartia, she would have a bolus of normal saline at 500 mL over 1 hour, if she is not better will need to the patient up to the selective care to give her IV Lopressor 5 mg IV push every 6 hours as needed. 10/08: patient is feeling a lot better today she denies any chest pain or shortness breath she is converted to sinus rhythm at this time there is no abdominal pain she didn't have any bowel movement that she has not passed any gas 10/10: Patient is complaining that she has not had a bowel movement and docusate Dulcolax suppository has been ordered but patient ended up having a bowel movement prior to discharge. Plan is to continue Senokot and lactulose was added for the correction. Patient is being discharged to [facility] today in stable condition. Patient will be followed at the correction by Dr. Mccrary. Objective - Vital Signs Vital signs: Vital Signs Temp 98.0 F 10/10/16 07:00 Pulse 65 10/10/16 07:00 Resp 16 10/10/16 07:00 BP 138/63 10/10/16 07:00 Pulse Ox 95 10/10/16 07:00 Intake & Output 10/09/16 10/10/16 10/10/16 18:59 06:59 18:59 Intake Total 900 Output Total 0 2850 Balance 900 0 -2850 Intake: Oral 900 Output: Urine 2850 Uretheral ([place]) 2850 Stool 0 Other: Voiding Method Bedside Commode Bedside Commode Indwelling Catheter # Voids 2 - Exam General appearance: no acute distress, obese - EENT Eyes: anicteric sclerae, EOMI, PERRLA, no ptosis, no scleral icterus, normal appearance ENT: hearing grossly normal, normal oropharynx, no thrush Ears: bilateral: normal - Neck Neck: no lymphadenopathy, normal ROM, no stridor, no thyromegaly Carotids: bilateral: upstroke normal Thyroid: bilateral: normal size - Respiratory Respiratory: bilateral: diminished, negative: dullness, rales, rhonchi, wheezing , prolonged expiration - Cardiovascular Rhythm: irregularly irregular Heart sounds: normal: S1, S2 Abnormal Heart Sounds: no systolic murmur, no click - Gastrointestinal General gastrointestinal: normal bowel sounds, soft, no splenomegaly, no tenderness, no umbilical hernia, no ventral hernia - Integumentary Integumentary: normal, normal turgor - Neurologic Neurologic: CNII-XII intact - Musculoskeletal Musculoskeletal: strength equal bilaterally - Psychiatric Psychiatric: A&O x's 3, appropriate affect, intact judgment & insight - Labs CBC & Chem 7: 10/10/16 06:52 10/10/16 06:52 Labs: Abnormal Lab Results - Last 24 Hours (Table) 10/09/16 10/09/16 10/10/16 Range/Units 08:30 12:53 06:52 Chloride 108 H (98-107) mmol/L Osmolality 269 L (280-301) mosm/kg Total Protein 5.5 L (6.3-8.2) g/dL Albumin 3.0 L (3.5-5.0) g/dL Ur Random Sodium <5 L (30-90) mmol/L Assessment and Plan Plan: 1. Post operative day #0 status post right total knee arthroplasty. Continue Incentive spirometer to reduce the incidence of atelectasis and hospital- acquired pneumonia, continue current pain management as outlined by orthopedic surgery, continue patient on DVT prophylaxis per protocol, continue patient on antibiotic prophylaxis as well. Physical therapy evaluation in the next 24 hours. 2. Hypertension and hypertensive cardio vascular disease. Continue CartiaXT 180 mg orally once every day. 3. Paroxysmal atrial fibrillation currently in A. fib with somewhat rapid ventricular response. Continue Cartia XT 180 mg orally once every day, given a bolus of normal saline 500 mL over 1 hour, if no response patient will need to go on Lopressor 2.5 mg IV push every 6 hours hold for systolic pressure less than 110 or heart rate less than or equal to 55 4. Obesity with obstructive sleep apnea. Continue CPAP. 5. Osteoarthritis. Continue current pain management. 6. History of C. diff colitis. Resolved. 7. DVT prophylaxis. Continue aspirin 325 mg orally twice every day. 9. GI prophylaxis. Continue PPI. 10. constipation. We'll start the patient on Senokot-S 2 tablets orally once every day as well as MiraLAX 17 g in 8 ounce water once every day. Discharge plan: [facility] Impression and plan of care have been directed as dictated by the signing physician. Leticia Warren nurse practitioner acting as scribe for signing physician.
== END 2016-10-10 16:59 | DRG 470 ==
LOC: 2ORMAIN 11:59 → 3SUR 15:47
PROVIDERS: ADMIT Orthopaedic Surgery; ATTEND Orthopaedic Surgery
PROC: 0SRC0J9 Replacement of Right Knee Joint with Synthetic Substitute, Cemented, Open Approach (ICD-10-PCS; principal; 2016-10-07 14:00)
DX: M17.10 Unilateral primary osteoarthritis, unspecified knee (principal); I11.9 Hypertensive heart disease without heart failure; I48.0 Paroxysmal atrial fibrillation; E78.5 Hyperlipidemia, unspecified; G56.00 Carpal tunnel syndrome, unspecified upper limb; K59.00 Constipation, unspecified; G47.33 Obstructive sleep apnea (adult) (pediatric); E66.9 Obesity, unspecified; J30.2 Other seasonal allergic rhinitis; Z68.42 Body mass index [BMI] 45.0-49.9, adult; Z79.82 Long term (current) use of aspirin; Z79.899 Other long term (current) drug therapy; Z87.891 Personal history of nicotine dependence; Z88.5 Allergy status to narcotic agent; Z88.0 Allergy status to penicillin; Z88.1 Allergy status to other antibiotic agents; Z91.041 Radiographic dye allergy status
CPT/HCPCS: 71010; 80053; 82533; 83930; 83935; 84300; 84443; 85025; 88300

== ENCOUNTER → 2017-06-20 | Outpatient (CLI) | payer OTHER ==
--- NOTE | 2017-06-24 09:13 | MM ---
Reason for exam: screening (asymptomatic). Last mammogram was performed 9 months ago. History: Patient is postmenopausal. Family history of breast cancer in sister at age 63. Took estrogen for 1 year beginning at age 27. Physical Findings: A clinical breast exam by your physician is recommended on an annual basis and results should be correlated with mammographic findings. MG 3D Screening Mammo W/Cad Bilateral CC and MLO view(s) were taken. Prior study comparison: September 26, 2016, left breast MG 3d diag mammo w/cad LT. April 03, 2016, left breast MG work up mamm w CAD LT. There are scattered fibroglandular densities. There is chronic nodularity bilaterally. No significant changes when compared with prior studies. ASSESSMENT: Benign, BI-RAD 2 RECOMMENDATION: Routine screening mammogram of both breasts in 1 year.
== END | disposition home or self-care (01) ==
LOC: RADMAMWWP 13:30
PROVIDERS: ATTEND Family Medicine
DX: Z12.31 Encounter for screening mammogram for malignant neoplasm of breast (principal)
CPT/HCPCS: 77063; 77067

== ENCOUNTER → 2019-11-18 | Outpatient (CLI) | payer MEDICARE, OTHER ==
--- NOTE | 2019-11-18 13:18 | CT ---
EXAMINATION TYPE: CT cervical spine wo con DATE OF EXAM: 11/18/2019 COMPARISON: Preoperative 06/18/2015 exam HISTORY: 69-year-old female Z09, encounter for follow-up exam TECHNIQUE: Contiguous axial scanning of the cervical spine without IV contrast. Coronal and sagittal reconstructions performed. CT DLP: 1110.74 mGycm Automated exposure control for dose reduction was used. FINDINGS: No cranial cervical junction abnormality, predental space widening, or prevertebral soft tissue swell ing. Degenerative changes at the C1 dens articulation are unchanged. 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 Laminectomies from C2 down to the T1 levels. There is posterior fusion hardware from C2 down through T2 Of note, the right C2 lateral mass screw tip just violates the C2 articular surface and just extends into the lateral mass articulation, refer to sagittal image 25. Orthopedic hardware otherwise appears grossly unremarkable. There remains at least a moderate spinal canal stenosis at the nonsurgerized T2 level with AP canal d imension of 6.5 mm. Alignment is maintained. Retropharyngeal course of the common carotid arteries. IMPRESSION: 1. POST SURGICAL CHANGE WITH C2 THROUGH T2 POSTERIOR FUSION AND WIDE LAMINECTOMIES FROM C2 THROUGH T1 . 2. OF NOTE, THE RIGHT C2 LATERAL MASS SCREW TIP VIOLATES THE C2 ARTICULAR SURFACE JUST EXTENDING INTO THE C1-C2 LATERAL MASS ARTICULATION. ORTHOPEDIC HARDWARE OTHERWISE APPEARS GROSSLY UNCOMPLICATED. 3. OPLL FROM C2 DOWN THROUGH T3 REDEMONSTRATED. THERE REMAINS AT LEAST MODERATE SPINAL CANAL STENOSIS AT THE NONSURGERIZED T2 LEVEL WITH AP CANAL DIMENSION OF 6.5 MM. THERE HAS BEEN DORSAL DECOMPRESSION OF THE SPINAL CANAL AT THE REMAINING LEVELS.
== END | disposition home or self-care (01) ==
LOC: RADUSMAIN 12:03
PROVIDERS: ATTEND Neurological Surgery
DX: Z09 Encounter for follow-up examination after completed treatment for conditions other than malignant neoplasm (principal); M48.02 Spinal stenosis, cervical region; M53.82 Other specified dorsopathies, cervical region; Z98.1 Arthrodesis status
CPT/HCPCS: 72125

== ENCOUNTER → 2020-05-19 | Outpatient (CLI) | payer MEDICARE, OTHER ==
--- NOTE | 2020-05-19 13:36 | CT ---
EXAMINATION TYPE: CT cervical spine wo con DATE OF EXAM: 05/19/2020 COMPARISON: CT cervical spine November 18, 2019 HISTORY: Arthrodesis progress study. CT DLP: 1366 mGycm. Automated Exposure Control for Dose Reduction was Utilized. TECHNIQUE: CT scan of the cervical spine is obtained without contrast, axial images are obtained, sa gittal and coronal reformatted images are also reviewed. FINDINGS: There is redemonstration of posterior interpedicular rods and screws running from C2 throug h the T2 level bilaterally. Persistent multilevel laminectomy defects and spinous process resection. Stable positioning of the right C2 screw extending into the anterior C1-C2 lateral articulation coron al image 12 and sagittal image 19. Screw positioning inferiorly is stable. Persistent ossified transcription typist ior longitudinal ligament from C2 level to the mid T3 level sagittal image 25 for reference. Prominen t anterior spurring mid to cervical spine redemonstrated. Tortuous medial course to the carotid arter ies bilaterally redemonstrated on axial images. IMPRESSION: As above. Long segment postsurgical change and posterior decompression redemonstrated. St able alignment noted. No significant interval change.
== END | disposition home or self-care (01) ==
LOC: RADCTMAIN 12:47
PROVIDERS: ATTEND Neurological Surgery
DX: M48.8X3 Other specified spondylopathies, cervicothoracic region (principal); Z98.1 Arthrodesis status; Z98.890 Other specified postprocedural states
CPT/HCPCS: 72125

== ENCOUNTER → 2021-09-27 | Outpatient (CLI) | payer MEDICARE, OTHER ==
--- NOTE | 2021-09-27 20:04 | XR ---
EXAMINATION TYPE: Thoracic Spine X-Ray 2 Views DATE OF EXAM: 09/27/2021 COMPARISON: None HISTORY: Arthrodesis TECHNIQUE: Thoracic spine is examined in 2 projections. FINDINGS: There is cervical thoracic fusion junction. There appear to be 12 thoracic type vertebral b odies. Spondylosis is present. Vertebral body heights are preserved. Disc heights appear preserved. IMPRESSION: 1. Mild spondylosis. 2. Cervical thoracic fusion
== END | disposition home or self-care (01) ==
LOC: RADXRMAIN 11:02
PROVIDERS: ATTEND Neurological Surgery
DX: M47.894 Other spondylosis, thoracic region (principal); M43.23 Fusion of spine, cervicothoracic region; Z98.1 Arthrodesis status
CPT/HCPCS: 72070

== ENCOUNTER 2021-11-25 20:08 | Emergency (ER) | payer MEDICARE, OTHER ==
[2021-11-25 20:14] VITALS: BP 128/80; RESP 20; TEMP 98
--- NOTE | 2021-11-25 20:56 | ED ---
General Adult HPI - General Chief complaint: Shortness of Breath Stated complaint: TJ Time Seen by Provider: 11/25/21 20:54 Source: patient Mode of arrival: wheelchair Limitations: no limitations - History of Present Illness Initial comments: Patient presents to the ED complaining of having dyspnea and wheezing for the past 2 days. Patient states that she has a history of asthma, and she states that she feels that she has been having an asthma exacerbation. Patient states that her son has been keeping the air conditioner on at night, and she states that she normally has asthma exacerbations this time a year. Patient states that she does not have an albuterol inhaler at home, and she is requesting a nebulizer treatment. She states that she wants nothing more. Patient denies fever or chills, any pain, headache, focal neuro deficit, sore throat, chest pain or pressure, cough or cold symptoms, palpitations, dizziness, abdominal pain, nausea/vomiting/diarrhea, decreased urine output, dysuria or urinary symptoms, leg or calf swelling or pain, or any other symptoms or complaints. Patient states that she had Covid a few months ago, and she states that she is unvaccinated for Covid. - Related Data Home Medications Medication Instructions Recorded Confirmed HYDROcodone/APAP 5-325MG [[place] 1 tab PO TID PRN 09/27/15 10/07/16 5-325] Aspirin 325 mg PO DAILY 09/27/16 10/07/16 dilTIAZem HCL [Cartia Xt] 180 mg PO QAM 09/27/16 10/07/16 Previous Rx's Medication Instructions Recorded Aspirin 325 mg PO BID #60 tab 10/10/16 HYDROcodone/APAP 7.5-325MG [[place] 1 - 2 tab PO Q4-6H PRN #60 tab 10/10/16 7.5-325] Lactulose 20 gm PO BID #60 ml 10/10/16 Sennosides-Docusate Sodium 1 tab PO BID #60 tablet 10/10/16 [Senokot-S] Albuterol Inhaler [Ventolin Hfa 2 puff INHALATION Q4HR PRN #1 each 11/25/21 Inhaler] Allergies Allergy/AdvReac Type Severity Reaction Status Date / Time hydromorphone HCl Allergy Nausea & Verified 05/22/21 17:15 [From Dilaudid] Vomiting Iodinated Contrast Media Allergy Anaphylaxis Verified 05/22/21 17:15 [Iodinated Contrast Media - IV Dye] Penicillins Allergy Unknown Verified 05/22/21 17:15 Childhood vancomycin Allergy Rash/Hives Verified 05/22/21 17:15 meloxicam [From Mobic] AdvReac Intermediate Unknown Verified 05/22/21 17:15 Review of Systems ROS Statement: Those systems with pertinent positive or pertinent negative responses have been documented in the HPI. ROS Other: All systems not noted in ROS Statement are negative. Past Medical History Past Medical History: Atrial Fibrillation, Hyperlipidemia, Hypertension, Osteoarthritis (OA), Sleep Apnea/CPAP/BIPAP History of Any Multi-Drug Resistant Organisms: None Reported Date of last positivie culture/infection: None MDRO Source:: None Past Surgical History: Adenoidectomy, Appendectomy, Section, Cholecystectomy, Hernia Repair, Orthopedic Surgery, Tonsillectomy Past Psychological History: No Psychological Hx Reported Smoking Status: Never smoker Past Alcohol Use History: None Reported Past Drug Use History: None Reported - Past Family History Father History Unknown: Yes Family Medical History: Liver Disease Mother Family Medical History: Cancer Brother(s) Family Medical History: No Reported History Sister(s) Family Medical History: Cancer Son(s) Family Medical History: No Reported History General Exam Limitations: no limitations General appearance: alert, in no apparent distress Head exam: Present: atraumatic, normocephalic Eye exam: Present: normal appearance, EOMI ENT exam: Present: normal oropharynx, mucous membranes moist Neck exam: Present: other (Trachea is in midline) Respiratory exam: Present: other (Scattered end-expiratory wheezes bilaterally). Absent: respiratory distress, rales, rhonchi, stridor Cardiovascular Exam: Present: normal rhythm, bradycardia, normal heart sounds, other (Normal radial pulses bilaterally) GI/Abdominal exam: Present: soft. Absent: distended, tenderness, guarding Extremities exam: Present: other (Negative Homans sign bilaterally). Absent: tenderness, pedal edema, calf tenderness Neurological exam: Present: alert, oriented X3. Absent: motor sensory deficit Psychiatric exam: Present: normal affect, normal mood Skin exam: Present: warm, dry, intact, normal color Course Vital Signs 11/25/21 11/25/21 11/25/21 20:11 21:33 21:39 Temperature 98 F Pulse Rate 52 L 74 75 Respiratory 20 Rate Blood Pressure 128/80 O2 Sat by Pulse 98 Oximetry - Reevaluation(s) Reevaluation #1: 11/25/21 21:52 Patient states that her dyspnea has improved with the DuoNeb treatment that she was given in the ED. Patient remains alert and breathing comfortably. I have recommended to the patient that she undergo EKG and laboratory testing, as well as Covid testing, but the patient adamantly refuses. Patient states that "the Covid tests come preinfected from [facility]". I attempted to explain to her that her symptoms may be due to CHF or a cardiac etiology as well, but she still refuses any further testing. Patient states that her dyspnea has improved with the DuoNeb treatment that she was given and she wishes to be discharged home with a prescription for an albuterol inhaler, which was provided. Patient was instructed to return to the ED should she change her mind about testing, or should she develop new or worsening symptoms. Patient agrees to do so. Patient was also instructed to follow up closely with her primary care provider. Patient feels comfortable with this plan. Medical Decision Making - Radiology Data Chest x-ray: No acute cardiopulmonary disease/process. Disposition Clinical Impression: Dyspnea, Wheezing Disposition: HOME SELF-CARE Condition: Stable Instructions (If sedation given, give patient instructions): Asthma (ED), Dyspnea (ED) Additional Instructions: Return to the ER immediately should you change your mind about further testing, or should you develop increased shortness of breath, any significant pain, a fever, vomiting, feeling dizzy or faint, or new or worsening symptoms. Follow up closely with your primary care provider. Prescriptions: Albuterol Inhaler [Ventolin Hfa Inhaler] 2 puff INHALATION Q4HR PRN #1 each PRN Reason: Dyspnea Is patient prescribed a controlled substance at d/c from ED?: No Referrals: Yong Bennett MD [Primary Care Provider] - 1-2 days Time of Disposition: 21:58
--- NOTE | 2021-11-25 21:07 | XR ---
EXAMINATION TYPE: XR chest 2V DATE OF EXAM: 11/25/2021 9:00 PM COMPARISON: Chest radiographs from 10/08/2016. TECHNIQUE: XR chest 2V Frontal and lateral views of the chest. CLINICAL INDICATION:Female, 71 years old with history of dyspnea; FINDINGS: Lungs/Pleura: There is no evidence of pleural effusion, focal consolidation, or pneumothorax. Pulmonary vascularity: Unremarkable. Heart/mediastinum: Cardiomediastinal silhouette is unremarkable. Musculoskeletal: No acute osseous pathology. There is fixation hardware in the lower cervical spine. IMPRESSION: No acute cardiopulmonary disease/process.
[2021-11-25] MEDS ORDERED: IPRATROPIUM-ALBUTEROL 3 ML NEB INHALATION STA (21:12)
[2021-11-25 21:40] VITALS: PULSE 75
== END 2021-11-25 22:02 | disposition home or self-care (01) ==
LOC: EC 20:08
DX: Z88.0 Allergy status to penicillin (principal); R06.2 Wheezing; R06.00 Dyspnea, unspecified; E78.5 Hyperlipidemia, unspecified; I10 Essential (primary) hypertension; Z91.041 Radiographic dye allergy status; Z88.1 Allergy status to other antibiotic agents; Z88.5 Allergy status to narcotic agent
CPT/HCPCS: 71046; 93005; 94640; 99285

== ENCOUNTER → 2021-12-28 | Outpatient (CLI) | payer MEDICARE, OTHER | END | disposition home or self-care (01) | LOC: RADMAMWWP 11:04 | PROVIDERS: ATTEND Family Medicine | DX: Z12.31 Encounter for screening mammogram for malignant neoplasm of breast (principal) | CPT/HCPCS: 77063; 77067 ==

== ENCOUNTER 2022-01-03 13:32 | Observation (INO) | payer MEDICARE, OTHER ==
--- NOTE | 2022-01-03 16:03 | CT ---
EXAMINATION TYPE: CT brain cspine wo con CT DLP: 1262.1 mGycm, Automated exposure control for dose reduction was used. DATE OF EXAM: 01/03/2022 3:43 PM COMPARISON: CT cervical spine 05/19/2020. CLINICAL INDICATION:Female, 71 years old with history of weakness; TECHNIQUE: Brain: Multiple axial CT images of the brain were obtained without IV contrast. Cspine: Axial CT images from the skull base to the inferior aspect of T2 we obtained without intraven ous contrast. Coronal and sagittal reformatted images were also reviewed. FINDINGS: Brain: Extra-axial spaces: No abnormal extra-axial fluid collections. Ventricular system: Dilatation in proportion to cerebral atrophy. Ex vacuo dilatation of the posterio r horn of the right lateral ventricle. Cerebral parenchyma: No acute intraparenchymal hemorrhage or mass effect. Subtle malacia within the right parietal/temporal lobe related to remote injury. The pittman-white junction is well differentiated . Scattered hypoattenuating areas are seen within the white matter. Cerebral volume loss. Cerebellum: Unremarkable. Mass effect: No evidence of midline shift. Intracranial vasculature: unremarkable Soft tissues: Normal. Calvarium/osseous structures: No depressed skull fracture. Paranasal sinuses and mastoid air cells: Clear. Visualized orbits: Orbital contents are intact. Cervical spine: Fracture: None. Osseous structures: Redemonstration of posterior interpedicular rods and screws running from C2 throu gh T2 level bilaterally. Persistent multilevel laminectomy defects and spinous process resection rede monstrated. Stable positioning of the right C2 screw extending into the anterior C1-C2 lateral articu lation. Hardware appears intact. 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 Prominent anterior spurring mid to cervical spine redemonstrated. Vertebral alignment: Within normal limits. Spinal canal/Neural Foramina: No evidence of significant spinal canal narrowing. No evidence for sign ificant neural foraminal stenosis. Neck soft tissues: Prevertebral soft tissues are within normal limits. Other: The airway is patent. The lung apices are clear. Tortuous medial course of the carotid arterie s bilaterally redemonstrated. IMPRESSION: 1. No acute intracranial process. 2. Encephalomalacia within the right parietal/temporal lobes related to remote injury. 3. Nonspecific white matter changes, likely secondary to chronic small vessel ischemic disease. 4. No evidence of cervical spine fracture. 5. Extensive postsurgical changes of the cervical spine. Hardware appears intact.
--- NOTE | 2022-01-03 18:36 | ED ---
General Adult HPI - General Chief complaint: Neuro Symptoms/Deficit Stated complaint: Arm weakness Time Seen by Provider: 01/03/22 18:17 Source: patient, RN notes reviewed Mode of arrival: wheelchair Limitations: no limitations - History of Present Illness Initial comments: Patient is a pleasant 71-year-old female presenting to the emergency department with concerns for arm weakness. Onset of symptoms was around 12 or 12:30 today. Patient is having episodes, mostly on the right arm were it is weak and decreased sensation. Patient states she is also had some mild episodes of the left arm as well however those do not last as long and are not as severe. Episodes are lasting a couple minutes each time. Patient had difficulty opening the car door. No headache or confusion. No lower extremity problems. - Related Data Home Medications Medication Instructions Recorded Confirmed HYDROcodone/APAP 5-325MG [[place] 1 tab PO TID PRN 09/27/15 10/07/16 5-325] Aspirin 325 mg PO DAILY 09/27/16 10/07/16 dilTIAZem HCL [Cartia Xt] 180 mg PO QAM 09/27/16 10/07/16 Previous Rx's Medication Instructions Recorded Aspirin 325 mg PO BID #60 tab 10/10/16 HYDROcodone/APAP 7.5-325MG [[place] 1 - 2 tab PO Q4-6H PRN #60 tab 10/10/16 7.5-325] Lactulose 20 gm PO BID #60 ml 10/10/16 Sennosides-Docusate Sodium 1 tab PO BID #60 tablet 10/10/16 [Senokot-S] Albuterol Inhaler [Ventolin Hfa 2 puff INHALATION Q4HR PRN #1 each 11/25/21 Inhaler] Allergies Allergy/AdvReac Type Severity Reaction Status Date / Time hydromorphone HCl Allergy Nausea & Verified 01/03/22 13:39 [From Dilaudid] Vomiting Iodinated Contrast Media Allergy Anaphylaxis Verified 01/03/22 13:39 [Iodinated Contrast Media - IV Dye] Penicillins Allergy Unknown Verified 01/03/22 13:39 Childhood vancomycin Allergy Rash/Hives Verified 01/03/22 13:39 meloxicam [From Mobic] AdvReac Intermediate Unknown Verified 01/03/22 13:39 Review of Systems ROS Statement: Those systems with pertinent positive or pertinent negative responses have been documented in the HPI. ROS Other: All systems not noted in ROS Statement are negative. Constitutional: Denies: fever Eyes: Denies: eye pain ENT: Denies: ear pain Respiratory: Denies: cough Cardiovascular: Denies: chest pain Endocrine: Denies: fatigue Gastrointestinal: Denies: abdominal pain Genitourinary: Denies: dysuria Musculoskeletal: Denies: back pain Skin: Denies: rash Neurological: Reports: as per HPI, weakness, paresthesias. Denies: headache Past Medical History Past Medical History: Atrial Fibrillation, Hyperlipidemia, Hypertension, Osteoarthritis (OA), Sleep Apnea/CPAP/BIPAP History of Any Multi-Drug Resistant Organisms: None Reported Date of last positivie culture/infection: None MDRO Source:: None Past Surgical History: Adenoidectomy, Appendectomy, Section, Cholecystectomy, Hernia Repair, Orthopedic Surgery, Tonsillectomy Additional Past Surgical History / Comment(s): spinal cord fusion/injury 2020 Past Psychological History: No Psychological Hx Reported Smoking Status: Never smoker Past Alcohol Use History: None Reported Past Drug Use History: None Reported - Past Family History Father History Unknown: Yes Family Medical History: Liver Disease Mother Family Medical History: Cancer Brother(s) Family Medical History: No Reported History Sister(s) Family Medical History: Cancer Son(s) Family Medical History: No Reported History General Exam Limitations: no limitations General appearance: alert, in no apparent distress Head exam: Present: normocephalic Eye exam: Present: normal appearance, PERRL, EOMI Neck exam: Present: normal inspection. Absent: tenderness Respiratory exam: Present: normal lung sounds bilaterally Cardiovascular Exam: Present: regular rate, normal rhythm Expanded Peripheral pulses: 2+: Radial (R), Radial (L) GI/Abdominal exam: Present: soft. Absent: tenderness Extremities exam: Present: normal inspection, full ROM. Absent: tenderness Neurological exam: Present: alert, oriented X3, CN II-XII intact. Absent: motor sensory deficit Psychiatric exam: Present: normal affect, normal mood Skin exam: Present: normal color Course Vital Signs 01/03/22 01/03/22 13:33 18:25 Temperature 98.1 F Pulse Rate 54 L 55 L Respiratory 16 18 Rate Blood Pressure 149/83 154/86 O2 Sat by Pulse 98 98 Oximetry EKG Findings - EKG Comments: EKG Findings:: Sinus bradycardia 55. TX 182. QRS 110. QT or 70. QTc 458. Normal axis. Normal QRS. No acute ST change. Medical Decision Making - Medical Decision Making Patient reevaluated and updated. Patient also has complaints discussing pain medication for her tailbone as well as ear discomfort. Bilateral TMs within normal limits. Case was earlier discussed with practitioner Charleen, who will admit covering for Dr. Perez, who admits for Dr. Bennett. - Lab Data Result diagrams: 01/03/22 18:51 Lab Results 01/03/22 01/03/22 Range/Units 18:51 18:51 WBC 5.2 (3.8-10.6) k/uL RBC 5.21 (3.80-5.40) m/uL Hgb 15.3 (11.4-16.0) gm/dL Hct 47.3 H (34.0-46.0) % MCV 90.7 (80.0-100.0) fL MCH 29.3 (25.0-35.0) pg MCHC 32.3 (31.0-37.0) g/dL RDW 13.3 (11.5-15.5) % Plt Count 176 (150-450) k/uL MPV 8.1 Neutrophils % 50 % Lymphocytes % 39 % Monocytes % 5 % Eosinophils % 2 % Basophils % 1 % Neutrophils # 2.6 (1.3-7.7) k/uL Lymphocytes # 2.0 (1.0-4.8) k/uL Monocytes # 0.3 (0-1.0) k/uL Eosinophils # 0.1 (0-0.7) k/uL Basophils # 0.1 (0-0.2) k/uL PT 10.6 (9.0-12.0) sec INR 1.0 (<1.2) APTT 24.2 (22.0-30.0) sec - Radiology Data Radiology results: report reviewed (CT brain shows no acute intercranial process. Mode injury. Nonspecific white matter change. No evidence of cervical spine fracture. Postsurgical changes.), image reviewed (Chest x-ray shows no acute process) Disposition Clinical Impression: Arm weakness Disposition: ADMITTED IP TO THIS HOSP Is patient prescribed a controlled substance at d/c from ED?: No Referrals: Yong Bennett MD [Primary Care Provider] - 1-2 days Time of Disposition: 21:05
[2022-01-03 19:06] LABS: Basophils # (A) 0.1 k/uL (0-0.2); Basophils % (A) 1 %; Eosinophils # (A) 0.1 k/uL (0-0.7); Eosinophils % (A) 2 %; HCT 47.3 % (34.0-46.0); HGB 15.3 gm/dL (11.4-16.0); Lymphocytes % (A) 39 %; MCH 29.3 pg (25.0-35.0); MCHC 32.3 g/dL (31.0-37.0); MCV 90.7 fL (80.0-100.0); Mean Platelet Volume 8.1; Monocytes # (A) 0.3 k/uL (0-1.0); Monocytes % (A) 5 %; Neutrophils # (A) 2.6 k/uL (1.3-7.7); Neutrophils % (A) 50 %; Platelet Count 176 k/uL (150-450); RBC 5.21 m/uL (3.80-5.40); RDW 13.3 % (11.5-15.5); WBC 5.2 k/uL (3.8-10.6)
--- NOTE | 2022-01-03 19:21 | XR ---
EXAMINATION TYPE: XR chest 2V DATE OF EXAM: 01/03/2022 COMPARISON: 10/08/2016 HISTORY: Altered mental status TECHNIQUE: Frontal and lateral views of the chest are obtained. FINDINGS: There is no focal air space opacity, pleural effusion, or pneumothorax seen. The cardiac silhouette size is within normal limits. The osseous structures are without acute abnormality. Cerv ical spine fusion seen. IMPRESSION: No acute cardiopulmonary process.
[2022-01-03 19:26] LABS: Partial Thromboplastin Time 24.2 sec (22.0-30.0); Prothrombin Time 10.6 sec (9.0-12.0)
[2022-01-03] MEDS ORDERED: ASPIRIN 325 MG TAB PO STA (21:05)
[2022-01-03] MEDS ORDERED: ACETAMINOPHEN TAB 325 MG TAB PO PRN (21:05)
[2022-01-03] MEDS: SODIUM CHLORIDE 0.9% 1,000 ML IV SCH (21:16)
[2022-01-04 00:48] LABS: Albumin 3.1 g/dL (3.5-5.0); Calcium 9.6 mg/dL (8.4-10.2); Potassium 3.8 mmol/L (3.5-5.1); Total Bilirubin 0.4 mg/dL (0.2-1.3); Total Protein 5.1 g/dL (6.3-8.2)
[2022-01-04] MEDS: ERYTHROMYCIN 5 MG/GM OPHTH OINT 3.5 GM TUBE BOTH EYES SCH ×2 (02:03→21:34)
[2022-01-04] MEDS: LATANOPROST 0.005% OPHTH DROPS 2.5 ML BTL BOTH EYES SCH ×2 (02:03→21:27)
[2022-01-04] MEDS: ASPIRIN 325 MG TAB PO SCH (07:44)
[2022-01-04] MEDS: ARTIFICIAL TEARS-HYPROMELLOSE DROPS 15 ML BTL BOTH EYES SCH ×3 (07:44→21:33)
[2022-01-04 09:22] LABS: HDL Cholesterol 64.5 mg/dL (40.00-60.00); Triglycerides 41.8 mg/dL (0.00-149.00)
[2022-01-04 09:33] LABS: Chol/HDL Ratio 1.83 Ratio; LDL Cholesterol,Direct Reflex 49.3 mg/dL (0.00-129.00)
--- NOTE | 2022-01-04 10:34 | P.CNNES ---
History of Present Illness Consult date: 01/04/22 Requesting physician: Audie Alva Reason for Consult: arm weakness History of Present Illness: This is a 71-year-old woman with medical history of atrial fibrillation on ASA, hypertension, hyperlipidemia who presented to the emergency department for sudden onset of right hand weakness and numb. She stated yesterday she went shopping and when she came back home she noticed her right hand was severely weak that had no movement as well numbness around 12:30pm. Her symptoms lasted few minutes. She denies any weakness to left upper extremity. She has chronic neck pain (right and left) without radiation. While in hospital she was told she had possibly right leg weakness that resolved. She denies of any other neuro logical issues. She has history of cervical fusion and follows-up with Neurosurgeon over [facility]. She feels back to baseline currently. Some other workup during this hospital visit consisted of: Lipid panel is triglyceride 41, cholesterol 118, LDLs 49 and HDL is 64. He to the head is reported as no acute intracranial process. Encephalomalacia within the right parietal temporal lobe related to remote injury. Nonspecific white matter changes likely secondary due to chronic small vessel ischemic disease. I personally reviewed the CT of the head and agree with the report CT of cervical spine was reported as no evidence of cervical spine fracture. Extensive postsurgical changes of the cervical spine. Hardware appears intact. I personally reviewed the CT cervical spine and agree with report. Review of Systems Review of system: The 12 point system was reviewed and apparent positive and negative per HPI. Past Medical History Past Medical History: Atrial Fibrillation, Hyperlipidemia, Hypertension, Osteoarthritis (OA), Sleep Apnea/CPAP/BIPAP History of Any Multi-Drug Resistant Organisms: None Reported Date of last positivie culture/infection: None MDRO Source:: None Past Surgical History: Adenoidectomy, Appendectomy, Section, Cholecystectomy, Hernia Repair, Orthopedic Surgery, Tonsillectomy Additional Past Surgical History / Comment(s): spinal cord fusion/injury 2020 Past Psychological History: No Psychological Hx Reported Smoking Status: Never smoker Past Alcohol Use History: None Reported Past Drug Use History: None Reported - Past Family History Father History Unknown: Yes Family Medical History: Liver Disease Mother Family Medical History: Cancer Brother(s) Family Medical History: No Reported History Sister(s) Family Medical History: Cancer Son(s) Family Medical History: No Reported History Medications and Allergies Home Medications Medication Instructions Recorded Confirmed Type Albuterol Inhaler [Ventolin Hfa 2 puff INHALATION RT-Q4H PRN 01/03/22 01/03/22 History Inhaler] Aspirin EC [Ecotrin Low Dose] 81 mg PO DAILY 01/03/22 01/03/22 History Carboxymethylcellulose Sodium 1 drop BOTH EYES TID 01/03/22 01/03/22 History [Thera Tears] Erythromycin Ophth Oint [Romycin 1 applic BOTH EYES HS 01/03/22 01/03/22 History Ophth Oint] Fluticasone Nasal [place] [Flonase 1 spray EA NOSTRIL DAILY PRN 01/03/22 01/03/22 History Nasal [place]] Hydrocortisone Cream 1 applic TOPICAL BID PRN 01/03/22 01/03/22 History [Hydrocortisone 2.5% Cream] Latanoprost/Pf [Latanoprost 0.005% 1 drop BOTH EYES HS 01/03/22 01/03/22 History Eye Drop] Loratadine 10 mg PO DAILY PRN 01/03/22 01/03/22 History dilTIAZem HCL [dilTIAZem HCL 24Hr 120 mg PO DAILY 01/03/22 01/03/22 History ER] methocarbamoL [Methocarbamol] 750 mg PO DIRECTED 01/03/22 01/04/22 History Allergies Allergy/AdvReac Type Severity Reaction Status Date / Time hydromorphone HCl Allergy Nausea & Verified 01/03/22 22:23 [From Dilaudid] Vomiting Iodinated Contrast Media Allergy Anaphylaxis Verified 01/03/22 22:23 [Iodinated Contrast Media - IV Dye] Penicillins Allergy Unknown Verified 01/03/22 22:23 Childhood vancomycin Allergy Rash/Hives Verified 01/03/22 22:23 meloxicam [From Mobic] AdvReac Intermediate Unknown Verified 01/03/22 22:23 levalbuterol AdvReac heart Verified 01/03/22 22:23 issues Physical Examination - Vital Signs Vital Signs: Vital Signs Temp Pulse Pulse Resp BP BP Pulse Ox 01/04/22 08:00 51 L 16 01/04/22 07:00 97.4 F L 51 L 16 120/70 98 01/04/22 02:15 97.9 F 01/03/22 23:25 98.5 F 76 17 116/64 95 01/03/22 21:19 54 L 18 121/73 97 01/03/22 18:25 55 L 18 154/86 98 01/03/22 13:33 98.1 F 54 L 16 149/83 98 Intake and Output 01/03/22 01/04/22 01/04/22 22:59 06:59 14:59 Intake Total 240 Output Total 250 450 Balance -250 -210 Intake: Oral 240 Output: Urine 250 450 Other: Voiding Method External Catheter External Catheter # Voids 1 Weight 88.451 kg GENERAL: The patient is lying in bed and is not in acute distress. CHEST: The heart rate is regular rate rhythm. No murmurs to auscultation. No carotid bruit bilaterally. LUNG: Clear to auscultation bilaterally no wheezing noted throughout. Not labored breathing. ABDOMEN/GI: Bowel sounds present in all 4 quadrants. No tenderness to palpation throughout. NEUROLOGICAL: Higher mental function: The patient is awake, alert, oriented to self, place and time. Patient is following commands. No aphasia and no neglect. Cranial nerves: The pupils are round, equal and reactive to light and accommodation. Visual morris are full to confrontation throughout. Extraocular movement is intact no nystagmus is noted. Facial sensation is normal to touch throughout. The facial strength is normal throughout. Hearing is normal bilaterally to hand rub. Tongue is midline and moved [id number] without any difficulty. No dysarthria is noted. Shoulder shrug is normal bilaterally. Motor: The strength is 5 over 5 throughout. Normal tone and bulk. Cerebellum: Normal finger to nose bilaterally. Sensation: Sensation is normal to touch throughout. Reflexes (right/left): 3+ throughout brachioradialis, left biceps. Otherwise 2+. Plantars are mute bilaterally. Results - Laboratory Findings CBC and BMP: 01/03/22 18:51 01/04/22 00:00 Abnormal Lab Findings: Abnormal Labs 01/03/22 01/04/22 01/04/22 18:51 00:00 00:00 Hct 47.3 H BUN 22 H Total Protein 5.1 L Albumin 3.1 L HDL Cholesterol 64.50 H Assessment and Plan Assessment: Acute transient right arm weakness and numbness as well as subtle left arm weakness. Appears TIA. 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 On examination has brisk reflex of uppers and appears cervical myelopathy. Hypertension History of Hyperlipidemia Plan: In the ED the patient was given aspirin 325 once there was started on aspirin 325 mg daily. I recommend consideration of starting anticoagulation especially since the patient has history of atrial fibrillation to avoid any further strokes or TIA. Start the patient on Lipitor 20 mg daily at bedtime for secondary stroke prophylaxis I ordered carotid duplex, 2-D echo. Continue neuro checks On cardiac monitoring PT OT and RECORDS CLERK are consulted We'll defer the rest of the medical management to the primary team Patient was notified to follow-up with her neurosurgeon since on examination has brisk reflexes for further work-up/management as outpatient. For DVT prophylaxis start the patient on subcu heparin 5000 units every 8 hours The plan is discussed with the patient and her nurse. Thank you for the consultation. Da Batista M.D. Neuro-Hospitalist Time with Patient: Greater than 30
[2022-01-04] MEDS: SODIUM CHLORIDE 0.9% 1,000 ML IV SCH ×2 (11:13→17:52)
--- NOTE | 2022-01-04 13:41 | US ---
EXAMINATION TYPE: US carotid duplex BILAT DATE OF EXAM: 01/04/2022 COMPARISON: NONE CLINICAL HISTORY: stroke. arm weakness TECHNIQUE: Carotid duplex ultrasound examination. Indirect Doppler criteria was utilized. FINDINGS: EXAM MEASUREMENTS: RIGHT: Peak Systolic Velocity (PSV) cm/sec ----- Right CCA: 69.5 ----- Right ICA: 73.4 ----- Right ECA: 86.4 ICA/CCA ratio: 1.06 RIGHT: End Diastole cm/sec ----- Right CCA: 14.3 ----- Right ICA: 18.8 ----- Right ECA: 9.7 LEFT: Peak Systolic Velocity (PSV) cm/sec ----- Left CCA: 89.0 ----- Left ICA: 83.2 ----- Left ECA: 57.2 ICA/CCA ratio: 0.93 LEFT: End Diastole cm/sec ----- Left CCA: 13.6 ----- Left ICA: 26.6 ----- Left ECA: 0.0 VERTEBRALS (direction of flow): Right Vertebral: Antegrade Left Vertebral: Antegrade Rhythm: Normal MEDICAL FRONT DESK SPECIALIST NOTES: Mild plaque bilateral bifurcations. no evidence of significant stenosis IMPRESSION: No hemodynamically significant stenosis in either internal carotid artery. Criteria for Assigning % of Stenosis / Diameter reduction (Estimation based on the indirect measurements of the internal carotid artery velocities (ICA PSV). 1. Normal (no stenosis)=ICA PSV < 125 cm/s: ratio < 2.0: ICA EDV<40 cm/s. 2. Less than 50% stenosis=ICA PSV < 125 cm/s: ratio < 2.0: ICA EDV<40 cm/s. 3. 50 to 69% stenosis=ICA PSV of 125 to 230 cm/s: ration 2.0 ? 4.0: ICA EDV 40-100 cm/s. 4. Greater than 70% stenosis to near occlusion= ICA PSV > 230 cm/s: ratio > 4.0: ICA EDV > 100 cm/s. 5. Near occlusion= ICA PSV velocities may be low or undetectable: variable ratio and ICA EDV. 6. Total occlusion=unable to detect flow.
[2022-01-04] MEDS ORDERED: FLUTICASONE 50MCG/SPRAY NASAL 16GM EA NOSTRIL PRN (13:48)
[2022-01-04] MEDS ORDERED: ALBUTEROL NEBULIZED 2.5 MG/3 ML INHALATION PRN (13:48)
[2022-01-04] MEDS ORDERED: HEPARIN SODIUM,PORCINE/PF 5,000 UNIT/0.5 ML SYRINGE SQ SCH (16:00)
--- NOTE | 2022-01-04 17:00 | CA ---
Transthoracic Echo Report Name: Elise Masters Age: 71 Gender: F : 1950 Exam Date: 01/04/2022 11:30 Exam Location: [facility] Ht (in): 65 Wt (lb): 195 Ordering Physician: Da Batista MD Attending/Referring Phys: Rubber Goods Inspector Franny Taylor RDCS Procedure CPT: Indications: stroke Cardiac Hx: Technical Quality: Good Contrast 1: Total Dose (mL): Contrast 2: Total Dose (mL): MEASUREMENTS (Male / Female) Normal Values 2D ECHO LV Diastolic Diameter PLAX 5.2 cm 4.2 - 5.9 / 3.9 - 5.3 cm LV Systolic Diameter PLAX 3.4 cm IVS Diastolic Thickness 1.2 cm 0.6 - 1.0 / 0.6 - 0.9 cm LVPW Diastolic Thickness 0.9 cm 0.6 - 1.0 / 0.6 - 0.9 cm LV Relative Wall Thickness 0.4 RV Internal Dim ED PLAX 3.0 cm LV Diastolic Volume MOD BP 84.5 cm??? 67 - 155 / 56 - 104 cm??? LV Systolic Volume MOD BP 29.7 cm??? 22 - 58 / 19 - 49 cm??? LV Ejection Fraction MOD BP 64.8 % >= 55 % LV Diastolic Volume MOD 4C 119.8 cm??? LV Systolic Volume MOD 4C 33.7 cm??? LV Ejection Fraction MOD 4C 71.8 % LV Diastolic Length 4C 8.2 cm LV Systolic Length 4C 6.9 cm LV Diastolic Volume MOD 2C 59.8 cm??? LV Systolic Volume MOD 2C 25.4 cm??? LV Ejection Fraction MOD 2C 57.5 % LV Diastolic Length 2C 8.1 cm LV Systolic Length 2C 7.2 cm LA Volume 59.1 cm??? 18 - 58 / 22 - 52 cm??? M-MODE Aortic Root Diameter MM 2.9 cm LA Systolic Diameter MM 4.2 cm LA Ao Ratio MM 1.5 MV E Point Septal Separation 0.8 cm AV Cusp Separation MM 1.6 cm DOPPLER AV Peak Velocity 170.4 cm/s AV Peak Gradient 11.6 mmHg MV Area PHT 3.3 cm??? MR Peak Velocity 166.8 cm/s MR Peak Gradient 11.1 mmHg Mitral E Point Velocity 78.4 cm/s Mitral A Point Velocity 80.8 cm/s Mitral E to A Ratio 1.0 MV Deceleration Time 230.2 ms MV E' Velocity 7.4 cm/s Mitral E to MV E' Ratio 10.6 TR Peak Velocity 173.2 cm/s TR Peak Gradient 12.0 mmHg Right Ventricular Systolic Press 16.0 mmHg FINDINGS Left Ventricle Mildly increased septal wall thickness. Left ventricular ejection fraction is estimated at 55-60 %. Left ventricular cavity size normal. Grade 1 diastolic dysfunction. Right Ventricle The right ventricle is normal in size and function. Right Atrium The right atrium is normal in size. Left Atrium Mildly increased left atrial volume. Mildly increased left atrial area. Mitral Valve Structurally normal mitral valve without significant stenosis or prolapse. There is mild mitral regurgitation. Aortic Valve Structurally normal aortic valve without significant sclerosis or stenosis. There is no aortic regurgitation. Tricuspid Valve Structurally normal tricuspid valve without significant stenosis. Pulmonary artery systolic pressure is normal. Mild tricuspid regurgitation. Pulmonic Valve Structurally normal pulmonic valve without significant stenosis. There is no pulmonic regurgitation. Pericardium Normal pericardium without effusion. Aorta Normal aortic root dimension. CONCLUSIONS Mild LVH Normal left ventricular ejection fraction 55-60% Mild mitral regurgitation Mild tricuspid regurgitation RVSP 16 Previewed by: Dr. Glenroy Foster DO (Electronically Signed) Final Date: 04 January 2022 16:59
[2022-01-04] MEDS ORDERED: methocarbamoL 750 MG TAB PO PRN (18:00)
[2022-01-04] MEDS ORDERED: ATORVASTATIN 20 MG TAB PO SCH (21:00)
[2022-01-04] MEDS: APIXABAN 5 MG TAB PO SCH (21:22)
[2022-01-05] MEDS: SODIUM CHLORIDE 0.9% 1,000 ML IV SCH (00:29)
[2022-01-05 08:35] VITALS: BP 137/79; PULSE 50; RESP 17; TEMP 97.5
[2022-01-05] MEDS ORDERED: DILTIAZEM CD 120 MG CAP.ER.24H PO SCH (09:00)
[2022-01-05] MEDS: ASPIRIN 325 MG TAB PO SCH (09:19)
[2022-01-05] MEDS: APIXABAN 5 MG TAB PO SCH (09:20)
[2022-01-05] MEDS: ARTIFICIAL TEARS-HYPROMELLOSE DROPS 15 ML BTL BOTH EYES SCH (09:20)
--- NOTE | 2022-01-05 11:39 | P.PN ---
Subjective Progress Note Date: 01/05/22 The patient is seen at bedside and continues to feel back to baseline. She denies of any new neurological issues. Objective - Vital Signs Vital signs: Vital Signs Temp 97.5 F L 01/05/22 07:00 Pulse 50 L 01/05/22 08:00 Resp 17 01/05/22 08:00 BP 137/79 01/05/22 07:00 Pulse Ox 96 01/05/22 07:00 FiO2 Intake & Output 01/04/22 01/05/22 01/05/22 18:59 06:59 18:59 Intake Total 598 200 Output Total 450 Balance 148 200 Intake: Oral 598 200 Output: Urine 450 Other: Voiding Method External Catheter External Catheter External Catheter # Voids 3 2 - Exam GENERAL: The patient is lying in bed and is not in acute distress. NEUROLOGICAL: Higher mental function: The patient is awake, alert, oriented to self, place and time. Patient is following commands. No aphasia and no neglect. Cranial nerves: The pupils are round, equal and reactive to light and accommodation. Visual morris are full to confrontation throughout. Extraocular movement is intact no nystagmus is noted. Facial sensation is normal to touch throughout. The facial strength is normal throughout. Hearing is normal bilaterally to hand rub. Tongue is midline and moved [id number] without any difficulty. No dysarthria is noted. Shoulder shrug is normal bilaterally. Motor: The strength is 5 over 5 throughout. Normal tone and bulk. Cerebellum: Normal finger to nose bilaterally. Sensation: Sensation is normal to touch throughout. Reflexes (right/left): 3+ throughout brachioradialis, left biceps. Otherwise 2+. Plantars are mute bilaterally. Some other workup during this hospital visit consisted of: Lipid panel is triglyceride 41, cholesterol 118, LDLs 49 and HDL is 64. CT head is reported as no acute intracranial process. Encephalomalacia within the right parietal temporal lobe related to remote injury. Nonspecific white matter changes likely secondary due to chronic small vessel ischemic disease. I personally reviewed the CT of the head and agree with the report CT of cervical spine was reported as no evidence of cervical spine fracture. Extensive postsurgical changes of the cervical spine. Hardware appears intact. I personally reviewed the CT cervical spine and agree with report. 2-D echo was reported as mild left ventricular hypertrophy. Normal left ventricular ejection fraction of 55-60%. Mild mitral regurgitation as well as mild tricuspid regurgitation. Mild increased left atrial volume. Mildly increased left atrial area. Carotid duplex is reported as no hemodynamically significant stenosis in either internal carotid artery. - Labs CBC & Chem 7: 01/03/22 18:51 01/04/22 00:00 Assessment and Plan Assessment: Acute transient right arm weakness and numbness as well as subtle left arm weakness. Appears TIA. 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 On examination has brisk reflex of uppers and appears cervical myelopathy. Hypertension History of Hyperlipidemia Plan: In the ED the patient was given aspirin 325 once there was started on aspirin 325 mg daily. I recommend consideration of starting anticoagulation especially since the patient has history of atrial fibrillation to avoid any further strokes or TIA but patient refuses to be on it upon discussing with her. Continue Lipitor 20 mg daily at bedtime for secondary stroke prophylaxis Continue neuro checks On cardiac monitoring PT OT and WOOD FILLER are consulted We'll defer the rest of the medical management to the primary team Patient was notified to follow-up with her neurosurgeon since on examination has brisk reflexes for further work-up/management as outpatient. For DVT prophylaxis start the patient on subcu heparin 5000 units every 8 hours Upon discharge, recommend the patient to follow-up with neurologist as outpatient within 1-2 weeks. The plan is discussed with the patient and her nurse. No additional work-up is needed and she is clear for discharge. Please notify neurology team if any further concerns. Da Batista M.D. Neuro-Hospitalist Time with Patient: Less than 30
--- NOTE | 2022-01-05 18:31 | P.HPIM ---
History of Present Illness H&P Date: 01/04/22 Chief Complaint: Arm weakness 71-year-old female presenting to the emergency department with concerns for arm weakness. Onset of symptoms was around 12 or 12:30 today. Patient is having episodes, mostly on the right arm were it is weak and decreased sensation. Patient states she is also had some mild episodes of the left arm as well however those do not last as long and are not as severe. Episodes are lasting a couple minutes each time. Patient had difficulty opening the car door. No headache or confusion. No lower extremity problems. Workup completed in ED Lipid panel is triglyceride 41, cholesterol 118, LDLs 49 and HDL is 64. He to the head is reported as no acute intracranial process. Encephalomalacia within the right parietal temporal lobe related to remote injury. Nonspecific white matter changes likely secondary due to chronic small vessel ischemic disease. CT of cervical spine was reported as no evidence of cervical spine fracture. Extensive postsurgical changes of the cervical spine. Hardware appears intact. I personally reviewed the CT cervical spine and agree with repor Review of Systems REVIEW OF SYSTEMS: CONSTITUTIONAL: No fever, no malaise, no fatigue. HEENT: No recent visual problems or hearing problems. Denied any sore throat. CARDIOVASCULAR: No chest pain, orthopnea, PND, no palpitations, no syncope. PULMONARY: No shortness of breath, no cough, no hemoptysis. GASTROINTESTINAL: No diarrhea, no nausea, no vomiting, no abdominal pain. NEUROLOGICAL: No headaches, no weakness, no numbness. HEMATOLOGICAL: Denies any bleeding or petechiae. GENITOURINARY: Denies any burning micturition, frequency, or urgency. MUSCULOSKELETAL/RHEUMATOLOGICAL: Denies any joint pain, swelling, or any muscle pain. ENDOCRINE: Denies any polyuria or polydipsia. The rest of the 14-point review of systems is negative. Past Medical History Past Medical History: Atrial Fibrillation, Hyperlipidemia, Hypertension, Osteoarthritis (OA), Sleep Apnea/CPAP/BIPAP History of Any Multi-Drug Resistant Organisms: None Reported Date of last positivie culture/infection: None MDRO Source:: None Past Surgical History: Adenoidectomy, Appendectomy, Section, Cholecystectomy, Hernia Repair, Orthopedic Surgery, Tonsillectomy Additional Past Surgical History / Comment(s): spinal cord fusion/injury 2020 Past Psychological History: No Psychological Hx Reported Smoking Status: Never smoker Past Alcohol Use History: None Reported Past Drug Use History: None Reported - Past Family History Father History Unknown: Yes Family Medical History: Liver Disease Mother Family Medical History: Cancer Brother(s) Family Medical History: No Reported History Sister(s) Family Medical History: Cancer Son(s) Family Medical History: No Reported History Medications and Allergies Home Medications Medication Instructions Recorded Confirmed Type Albuterol Inhaler [Ventolin Hfa 2 puff INHALATION RT-Q4H PRN 01/03/22 01/03/22 History Inhaler] Aspirin EC [Ecotrin Low Dose] 81 mg PO DAILY 01/03/22 01/03/22 History Carboxymethylcellulose Sodium 1 drop BOTH EYES TID 01/03/22 01/03/22 History [Thera Tears] Erythromycin Ophth Oint [Romycin 1 applic BOTH EYES HS 01/03/22 01/03/22 History Ophth Oint] Fluticasone Nasal [place] [Flonase 1 spray EA NOSTRIL DAILY PRN 01/03/22 01/03/22 History Nasal Div[place]] Hydrocortisone Cream 1 applic TOPICAL BID PRN 01/03/22 01/03/22 History [Hydrocortisone 2.5% Cream] Latanoprost/Pf [Latanoprost 0.005% 1 drop BOTH EYES HS 01/03/22 01/03/22 History Eye Drop] Loratadine 10 mg PO DAILY PRN 01/03/22 01/03/22 History dilTIAZem HCL [dilTIAZem HCL 24Hr 120 mg PO DAILY 01/03/22 01/03/22 History ER] methocarbamoL [Methocarbamol] 750 mg PO DIRECTED 01/03/22 01/04/22 History Aspirin 325 mg PO DAILY 30 Days #30 tab 01/05/22 Rx Atorvastatin [Lipitor] 20 mg PO DAILY 30 Days #30 tablet 01/05/22 Rx Allergies Allergy/AdvReac Type Severity Reaction Status Date / Time hydromorphone HCl Allergy Nausea & Verified 01/03/22 22:23 [From Dilaudid] Vomiting Iodinated Contrast Media Allergy Anaphylaxis Verified 01/03/22 22:23 [Iodinated Contrast Media - IV Dye] Penicillins Allergy Unknown Verified 01/03/22 22:23 Childhood vancomycin Allergy Rash/Hives Verified 01/03/22 22:23 meloxicam [From Mobic] AdvReac Intermediate Unknown Verified 01/03/22 22:23 levalbuterol AdvReac heart Verified 01/03/22 22:23 issues Physical Exam Vitals: Vital Signs Temp Pulse Pulse Resp BP BP Pulse Ox 01/04/22 08:00 51 L 16 01/04/22 07:00 97.4 F L 51 L 16 120/70 98 01/04/22 02:15 97.9 F 01/03/22 23:25 98.5 F 76 17 116/64 95 01/03/22 21:19 54 L 18 121/73 97 01/03/22 18:25 55 L 18 154/86 98 01/03/22 13:33 98.1 F 54 L 16 149/83 98 Intake and Output 01/03/22 01/04/22 01/04/22 22:59 06:59 14:59 Intake Total 240 Output Total 250 450 Balance -250 -210 Intake: Oral 240 Output: Urine 250 450 Other: Voiding Method External Catheter External Catheter # Voids 1 Weight 88.451 kg - Constitutional General appearance: Present: average body habitus, cooperative, no acute distress - EENT Eyes: Present: anicteric sclerae, EOMI, PERRLA, normal appearance ENT: Present: hearing grossly normal, normal oropharynx Ears: bilateral: normal - Neck Neck: Present: normal ROM. Absent: lymphadenopathy, rigidity, thyromegaly Carotids: negative: bruit present Thyroid: bilateral: normal size, negative: enlarged, nodule - Respiratory Respiratory: bilateral: CTA, negative: rales, rhonchi, wheezing - Cardiovascular Rhythm: regular Heart sounds: normal: S1, S2 Abnormal Heart Sounds: Absent: systolic murmur, diastolic murmur - Gastrointestinal General gastrointestinal: Present: normal bowel sounds, soft. Absent: dis tended, organomegaly, tenderness - Genitourinary Genitourinary Comment(s): deferred - Integumentary Integumentary: Present: normal turgor. Absent: jaundiced, rash, ulcer - Neurologic Neurologic: Present: CNII-XII intact. Absent: focal deficits - Musculoskeletal Musculoskeletal: Present: gait normal, strength equal bilaterally - Psychiatric Psychiatric: Present: A&O x's 3, appropriate affect, intact judgment & insight Results CBC & Chem 7: 01/03/22 18:51 01/04/22 00:00 Labs: Abnormal Lab Results - Last 24 Hours (Table) 01/03/22 01/04/22 01/04/22 Range/Units 18:51 00:00 00:00 Hct 47.3 H (34.0-46.0) % BUN 22 H (7-17) mg/dL Total Protein 5.1 L (6.3-8.2) g/dL Albumin 3.1 L (3.5-5.0) g/dL HDL Cholesterol 64.50 H (40.00-60.00) mg/dL Thrombosis Risk Factor Assmnt - Choose All That Apply Any of the Below Risk Factors Present?: Yes Each Factor Represents 1 point: Obesity (BMI >25) Each Risk Factor Represents 2 Points: Age 61-74 years Other congenital or acquired thrombophilia - If yes, enter type in comment: No Thrombosis Risk Factor Assessment Total Risk Factor Score: 3 Thrombosis Risk Factor Assessment Level: Moderate Risk Assessment and Plan Assessment: 1. Right-sided weakness and numbness; possible TIA - Patient had acute transient right arm weakness and numbness; likely TIA - Patient was given aspirin 325 mg in ED and recommended to continue on daily basis by neurology; recommending anticoagulation since patient is history of atrial fibrillation; patient is very reluctant use anticoagulation therapy - Start patient on Lipitor 20 mg by mouth daily at bedtime for secondary stroke prevention - 2-D echo and carotid Doppler is ordered - PT/OT/ANALYTICAL ENGINEER consulted 2. Atrial fibrillation; chronic; patient remains rate controlled on Cardizem; refuses anticoagulation 3. Hypertension; Cardizem 120 mg daily 4. Hyperlipidemia; Lipitor 20 mg by mouth daily at bedtime 5. COPD/asthma; continue with home inhaler therapy; continue with home dose of loratadine and Flonase; albuterol inhaler 2 puffs every 4 hours when necessary DVT prophylaxis; SCDs; patient refuses anticoagulation CODE STATUS; full code
--- NOTE | 2022-01-05 18:32 | P.DS ---
Providers Date of admission: 01/03/22 21:06 Expected date of discharge: 01/05/22 Attending physician: Kelly Perez Consults: 01/03/22 21:06 Consult Physician Routine Consulting Provider: Da Batista Consult Reason/Comments: arm weakness Do you want consulting provider notified?: Yes Primary care physician: Yong Mcallister [facility] Course: 71-year-old woman with medical history of atrial fibrillation on ASA, hypertension, hyperlipidemia who presented to the emergency department for sudden onset of right hand weakness and numb. She stated yesterday she went shopping and when she came back home she noticed her right hand was severely weak that had no movement as well numbness around 12:30pm. Her symptoms lasted few minutes. She denies any weakness to left upper extremity. She has chronic neck pain (right and left) without radiation. While in hospital she was told she had possibly right leg weakness that resolved. She denies of any other neurological issues. She has history of cervical fusion and follows-up with Neurosurgeon over [facility]. She feels back to baseline currently. Some other workup during this hospital visit consisted of: Lipid panel is triglyceride 41, cholesterol 118, LDLs 49 and HDL is 64. He to the head is reported as no acute intracranial process. Encephalomalacia within the right parietal temporal lobe related to remote injury. Nonspecific white matter changes likely secondary due to chronic small vessel ischemic disease. I personally reviewed the CT of the head and agree with the report CT of cervical spine was reported as no evidence of cervical spine fracture. Extensive postsurgical changes of the cervical spine. Hardware appears intact. I personally reviewed the CT cervical spine and agree with report. Acute transient right arm weakness and numbness as well as subtle left arm weakness. Appears TIA. 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 On examination has brisk reflex of uppers and appears cervical myelopathy. Hypertension History of Hyperlipidemia Plan: In the ED the patient was given aspirin 325 once there was started on aspirin 325 mg daily. I recommend consideration of starting anticoagulation especially since the patient has history of atrial fibrillation to avoid any further strokes or TIA but patient refuses to be on it upon discussing with her. Continue Lipitor 20 mg daily at bedtime for secondary stroke prophylaxis Continue neuro checks On cardiac monitoring PT OT and CANCELING AND CUTTING CONTROL CLERK are consulted We'll defer the rest of the medical management to the primary team Patient was notified to follow-up with her neurosurgeon since on examination has brisk reflexes for further work-up/management as outpatient. For DVT prophylaxis start the patient on subcu heparin 5000 units every 8 hours Upon discharge, recommend the patient to follow-up with neurologist as outpatient within 1-2 weeks. Patient Condition at Discharge: Fair Plan - Discharge Summary Discharge Rx Participant: No New Discharge Prescriptions: New Atorvastatin [Lipitor] 20 mg PO DAILY 30 Days #30 tablet Aspirin 325 mg PO DAILY 30 Days #30 tab Continue Fluticasone Nasal [place]ade [Flonase Nasal Glade] 1 spray EA NOSTRIL DAILY PRN PRN Reason: Allergy Symptoms Erythromycin Ophth Oint [Romycin Ophth Oint] 1 applic BOTH EYES HS dilTIAZem HCL [dilTIAZem HCL 24Hr ER] 120 mg PO DAILY Albuterol Inhaler [Ventolin Hfa Inhaler] 2 puff INHALATION RT-Q4H PRN PRN Reason: Shortness Of Breath Latanoprost/Pf [Latanoprost 0.005% Eye Drop] 1 drop BOTH EYES HS Hydrocortisone Cream [Hydrocortisone 2.5% Cream] 1 applic TOPICAL BID PRN PRN Reason: Dry Skin Loratadine 10 mg PO DAILY PRN PRN Reason: Allergy Symptoms Carboxymethylcellulose Sodium [Thera Tears] 1 drop BOTH EYES TID methocarbamoL [Methocarbamol] 750 mg PO DIRECTED Aspirin EC [Ecotrin Low Dose] 81 mg PO DAILY Discharge Medication List Albuterol Inhaler [Ventolin Hfa Inhaler] 2 puff INHALATION RT-Q4H PRN 01/03/22 [History] Aspirin EC [Ecotrin Low Dose] 81 mg PO DAILY 01/03/22 [History] Carboxymethylcellulose Sodium [Thera Tears] 1 drop BOTH EYES TID 01/03/22 [History] Erythromycin Ophth Oint [Romycin Ophth Oint] 1 applic BOTH EYES HS 01/03/22 [History] Fluticasone Nasal [place]ade [Flonase Nasal [place]ade] 1 spray EA NOSTRIL DAILY PRN 01/03/22 [History] Hydrocortisone Cream [Hydrocortisone 2.5% Cream] 1 applic TOPICAL BID PRN 01/03/22 [History] Latanoprost/Pf [Latanoprost 0.005% Eye Drop] 1 drop BOTH EYES HS 01/03/22 [History] Loratadine 10 mg PO DAILY PRN 01/03/22 [History] dilTIAZem HCL [dilTIAZem HCL 24Hr ER] 120 mg PO DAILY 01/03/22 [History] methocarbamoL [Methocarbamol] 750 mg PO DIRECTED 01/03/22 [History] Aspirin 325 mg PO DAILY 30 Days #30 tab 01/05/22 [Rx] Atorvastatin [Lipitor] 20 mg PO DAILY 30 Days #30 tablet 01/05/22 [Rx] Follow up Appointment(s)/Referral(s): Yong Bennett MD [Primary Care Provider] - 1-2 days Discharge Disposition: Left Against Medical Advice
== END 2022-01-05 13:02 | disposition left against medical advice (07) ==
LOC: EC 13:32 → 6NMEDSUR 21:06
PROVIDERS: ADMIT Hospitalist; ATTEND Hospitalist
DX: R53.1 Weakness (principal); R20.0 Anesthesia of skin; G93.89 Other specified disorders of brain; I10 Essential (primary) hypertension; E78.5 Hyperlipidemia, unspecified; G47.30 Sleep apnea, unspecified; I48.20 Chronic atrial fibrillation, unspecified; I08.1 Rheumatic disorders of both mitral and tricuspid valves; Z79.82 Long term (current) use of aspirin; Z79.899 Other long term (current) drug therapy; Z88.0 Allergy status to penicillin; Z88.1 Allergy status to other antibiotic agents; Z90.49 Acquired absence of other specified parts of digestive tract; Z80.9 Family history of malignant neoplasm, unspecified; Z98.1 Arthrodesis status; Z91.041 Radiographic dye allergy status; Z53.29 Procedure and treatment not carried out because of patient's decision for other reasons
CPT/HCPCS: 96360; 96372; 99285; 36415; 93005; 93306; 97116; 97162; 92610; 92523; 80061; 80053; 85025; 85610; 85730; 83721; 71046; 93880; 72125; 70450; G0378 ×3; J1644

== ENCOUNTER → 2022-01-30 | Outpatient (CLI) | payer MEDICARE, OTHER ==
--- NOTE | 2022-01-30 14:19 | MM ---
Reason for Exam: Additional evaluation requested from abnormal screening. Last screening mammogram was performed 1 month(s) ago. Patient History: Menarche at age 12. First Full-Term at age 29. Postmenopausal. Patient has history of breast feeding. Estrogen for 1 year from age 27 until age 28. Sister had breast cancer, age 63. Risk Values: Calli 5 year model risk: 3.7%. NCI Lifetime model risk: 10.6%. Prior Study Comparison: 03/11/2016 Bilateral Screening Mammogram, [facility]. 04/03/2016 Left Diagnostic Mammogram, [facility]. 09/26/2016 Left Diagnostic Mammogram, [facility]. 06/20/2017 Bilateral Screening Mammogram, [facility]. 12/28/2021 Bilateral MG 3D screening mammo w/cad, [facility]. Tissue Density: Right: The breast tissue is heterogeneously dense. This may lower the sensitivity of mammography. Findings: Analyzed By CAD. Roughly oval asymmetry persists in the anterior approximate 4 cm distance from nipple slightly inferior aspect, this has been present on prior mammograms. Overall Assessment: Incomplete: need additional imaging evaluation, BI-RAD 0 Management: Diagnostic Breast Ultrasound of the right breast. Targeted right breast ultrasound. Electronically signed and approved by: Jude Vigil M.D.
--- NOTE | 2022-01-30 14:42 | USB ---
Reason for Exam: Additional evaluation requested from abnormal screening. Patient History: Menarche at age 12. First Full-Term at age 29. Postmenopausal. Patient has history of breast feeding. Estrogen for 1 year from age 27 until age 28. Sister had breast cancer, age 63. Risk Values: Calli 5 year model risk: 3.7%. NCI Lifetime model risk: 10.6%. Technique: Method: Targeted. Prior Study Comparison: 09/26/2016 Left Diagnostic Mammogram, [facility]. 06/20/2017 Bilateral Screening Mammogram, [facility]. 12/28/2021 Bilateral MG 3D screening mammo w/cad, [facility]. Findings: The lower section of the breast of the right breast, the axilla of the right breast and the retroareolar of the right breast were scanned. Targeted ultrasound shows oval 1.1 x 0.9 x 0.9 cm parallel orientated circumscribed hypoechoic vascular mass at 6:00 position 4 cm distance from nipple felt to correspond to mammogram abnormality. Overall Assessment: Suspicious, BI-RAD 4 Management: Ultrasound Core Biopsy of the right breast. Tissue sampling advised. Patient told of findings and recommendations at time of dictation. Electronically signed and approved by: Jude Vigil M.D.
== END | disposition home or self-care (01) ==
LOC: RADMAMWWP 13:12
PROVIDERS: ATTEND Family Medicine
DX: R92.8 Other abnormal and inconclusive findings on diagnostic imaging of breast (principal)
CPT/HCPCS: 77065; 76642; G0279; 77061

== ENCOUNTER → 2022-06-06 | Outpatient (CLI) | payer MEDICARE, OTHER ==
--- NOTE | 2022-06-06 13:32 | BD ---
EXAMINATION TYPE: Axial Bone Density DATE OF EXAM: 06/06/2022 COMPARISON: NONE CLINICAL HISTORY: 71 years year old Female. ICD-10 CODE: Z78.0 post menopausal Height: 62 Weight: 192 FRAX RISK QUESTIONS: Alcohol (3 or more units per day): NO Family History (Parent hip fracture): NO Glucocorticoids (More than 3mos): NO History of Fracture in Adulthood: NO Secondary Osteoporosis: 1. Type 1 Diabetes: NO 2. Hyperthyroidism: NO 3. Menopause before 45: NO 4. Malnutrition: NO 5. Chronic liver disease: NO Rheumatoid Arthritis: NO Current Tobacco Use: N RISK FACTORS HISTORY OF: Hip Fracture (Right/Left): NO When: Spine Fracture: YES, FUSION IN LUMBAR When: 2020 History of Wrist Fracture: LT When: AGE 13 Surgery to Spine/Hip(right/left)/Wrist (right/left): LUMBAR When: 2020 Family History of Osteoporosis: NO Active: NO Diet low in dairy products/other sources of calcium: NO Postmenopausal woman: NO Take estrogen and/or progesterone medications: NO Lost more than 2 inches in height since high school: YES Frequent falls: NO Poor Health: YES Hyperparathyroidism: NO Adrenal Insufficiency: NO MEDICATIONS: Prednisone or other steroids: NO Thyroid Medications: NO Osteoporosis Medications: NO Additional Medications: BP MEDS, VIT C, VIT D, MULTI VIT., Additional History: PT HAD GREAT DIFFICULTY LAYING ON TABLE DUE TO BACK ISSUES. EXAM MEASUREMENTS: Bone mineral density about the R hip (g/cm2): 0.748 Bone mineral density about the L hip (g/cm2): 0.680 T Score values are as follows: -----R Neck: -2.1 -----L Neck: -2.6 -----R Total: -1.5 -----L Total: -1.6 BASELINE STUDY FRAX%s: The graph provided illustrates a 14.4% chance for a major osteoporotic fx and a 3.8% chance f or the hips probability for fx in 10 years time. IMPRESSION: Osteoporosis (T Score less than -2.5). There is increased fracture risk and therapy is usually indicated based on age. Re-Screen 1-2 years. NOTE: T-SCORE=SD OF THE YOUNG ADULT MEAN.
== END | disposition home or self-care (01) ==
LOC: RADBDWWP 12:31
PROVIDERS: ATTEND Family Medicine
DX: M81.0 Age-related osteoporosis without current pathological fracture (principal); Z78.0 Asymptomatic menopausal state
CPT/HCPCS: 77080